=== PATIENT | male | born 1930 | race Caucasian/White ===

== ENCOUNTER 2019-05-14 10:03 | Emergency (ER) | payer MEDICARE ==
[2019-05-14 10:50] LABS: #Basophils 0.1 thou/uL (0.0-0.2); #Eosinphils 0.5 thou/uL (0.0-0.7); #Lymphocytes 1.3 thou/uL (1.20-3.40); #Monocytes 0.8 thou/uL (0.11-0.59); #Neutrophils 4.3 thou/uL (1.40-6.50); %Basophils 0.8 % (0.0-1.0); %Eosinophils 7.7 % (0.0-10.0); %Lymphocytes 18.3 % (21.0-51.0); %Monocytes 11.8 % (0.0-10.0); %Neutrophils 61.4 % (42.0-75.0); Hemoglobin 12.6 g/dL (14.0-18.0); Mean Corpuscular HGB CONC 33.1 g/dL (32.0-36.0); Mean Corpuscular Hemoglobin 31.1 pg (27.0-31.0); Mean Corpuscular Volume 94.1 fL (78.0-98.0); Mean Platelet Volume 7.1 fL (7.4-10.4); Platelet Count 177 thou/uL (130-400); RBC Distribution Width 12.8 % (11.5-14.5); Red Blood Cell (RBC) Count 4.03 mill/uL (4.70-6.10); White Blood Cell (WBC) Count 6.9 thou/uL (4.8-10.8)
[2019-05-14] MEDS ORDERED: Ondansetron PF 4 MG/2 ML Vial ONE (10:51)
[2019-05-14 11:11] LABS: ALT (SGPT) 11 U/L (8-55); AST (SGOT) 13 U/L (5-34); Albumin 3.2 g/dL (3.4-4.8); Alkaline Phosphatase 130 U/L (40-110); Anion Gap 13 mmol/L (10-20); BUN (Urea Nitrogen) 17 mg/dL (8.4-25.7); Bilirubin, Total 0.9 mg/dL (0.2-1.2); Calc. Creatinine Clearance 0 mL/min (70-130); Calcium 8.6 mg/dL (7.8-10.44); Carbon Dioxide 23 mmol/L (23-31); Chloride 110 mmol/L (98-107); Estimated GFR-MDRD 40; Globulin 2.8 g/dL (2.4-3.5); Glucose 91 mg/dL (83-110); Sodium 142 mmol/L (136-145)
--- NOTE | 2019-05-14 12:07 | CT ---
CT Abdomen Pelvis W Con History: Abdominal pain Comparison: None. Findings: Lung bases are clear. No pericardial effusion. Very large left-sided renal cysts with a septated cyst measuring up to 15 cm in size. Nonobstructive 3 x 7 mm calculus superior right renal collecting system. Punctate 2 to 3 mm calculi i nterpolar left renal collecting system. There is a sigmoid colon fat-containing left-sided indirect inguinal hernia without evidence of obstr uction. Small fat-containing periumbilical hernia. Prior cholecystectomy. There is a diverticulum third portion duodenum. Aortoiliac contour is nonaneurysmal. No acute osseous abnormality. Aortic contour is nonaneurysmal. Impression: 1. Fat and sigmoid colon left indirect inguinal hernia without evidence of obstruction. 2. Large left renal cyst as described. 3. Nonobstructive bilateral renal calculi. 4. 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 5. Small fat-containing periumbilical hernia.
[2019-05-14 13:19] LABS: Bacteria/HPF None Seen HPF (None Seen); Bilirubin Negative (Negative); Blood, Urine Negative (Negative); Clarity Clear (Clear); Glucose, Urine (Dipstick) Normal (Negative); Leukocyte Negative Leu/uL (Negative); Nitrite Negative (Negative); Protein, Urine (Dipstick) Negative (Neg-Trace); RBC/HPF None Seen HPF (0-3); Squamous Epithelial None Seen HPF (0-3); WBC/HPF 0-3 HPF (0-3)
[2019-05-14] MEDS ORDERED: Iopamidol 370 76% 100 ML VIAL ONE (20:16)
== END 2019-05-14 14:55 ==
LOC: ERS 10:03
DX: R00.1 Bradycardia, unspecified (principal); R11.2 Nausea with vomiting, unspecified
CPT/HCPCS: 36415; 74177; 80053; 81001; 85025; 93005; 96361; 96374; J2405; Q9967

== ENCOUNTER 2019-05-14 16:11 | Emergency (ER) | payer MEDICARE ==
--- NOTE | 2019-05-14 18:21 | RAD ---
THORACIC SPINE THREE VIEWS: HISTORY: Fall with back pain. FINDINGS: The vertebral bodies are normal in height. Degenerative changes are seen along the course of the spin e. I do not see any signs of compression fracture. The pedicles are intact. IMPRESSION: Arthritic changes of the spine. No acute injury. POS: [facility]IA [facility]
--- NOTE | 2019-05-14 18:22 | RAD ---
LUMBAR SPINE SERIES: HISTORY: Fall with back pain. FINDINGS: Vertebral bodies are normal in height. Degenerative osteophytes are seen without significant disk gal rowing. Degenerative facet changes are noted. Pedicles are intact. Contrast from a previous CT is not ed in the kidneys and bladder. IMPRESSION: No acute findings. POS: CHRISS
--- NOTE | 2019-05-14 18:24 | RAD ---
CERVICAL SPINE SERIES THREE VIEWS: HISTORY: Fall with neck pain. FINDINGS: There are severe arthritic changes of the facet joints noted. On the lateral view which is a cross-ta ble view only the first five vertebral bodies are seen. C6 and C7 are in grossly normal alignment. Ca rotid bulb calcifications are noted. No soft tissue swelling. IMPRESSION: Limited examination. Moderate arthritic changes of the facet joints are noted. C6 and C7 are not visu alized on this study. If indicated CT is recommended. POS: MARIA [facility]
--- NOTE | 2019-05-14 18:41 | CT ---
CT BRAIN WITHOUT CONTRAST: HISTORY: Fall, hitting head. TECHNIQUE: IV contrast was administered approximately six hours ago for a CT study. FINDINGS: There is generalized ventricular and sulcal prominence with decreased attenuation of the periventricu lar white matter, consistent with some chronic white matter change. There are no signs of intracerebr al hemorrhage or extraaxial fluid collections. The mastoid air cells are clear. There is minimal maxi llary sinus mucosal change. IMPRESSION: No acute intracranial abnormalities. POS: MARIA R
== END 2019-05-14 20:40 ==
LOC: ERS 16:11
DX: S00.03XA Contusion of scalp, initial encounter (principal); K21.9 Gastro-esophageal reflux disease without esophagitis; F41.9 Anxiety disorder, unspecified; G30.9 Alzheimer's disease, unspecified; F02.80 Dementia in other diseases classified elsewhere, unspecified severity, without behavioral disturbance, psychotic disturbance, mood disturbance, and anxiety; E78.5 Hyperlipidemia, unspecified; E78.00 Pure hypercholesterolemia, unspecified; I10 Essential (primary) hypertension; F32.9 Major depressive disorder, single episode, unspecified; Z79.899 Other long term (current) drug therapy; Z79.01 Long term (current) use of anticoagulants; W18.30XA Fall on same level, unspecified, initial encounter
CPT/HCPCS: 70450; 72040; 72072; 72100

== ENCOUNTER 2019-07-19 06:44 | Inpatient (IN) | payer MEDICARE ==
[2019-07-19 07:41] LABS: #Basophils 0.1 thou/uL (0.0-0.2); #Eosinphils 0.4 thou/uL (0.0-0.7); #Lymphocytes 1.2 thou/uL (1.20-3.40); #Monocytes 0.9 thou/uL (0.11-0.59); #Neutrophils 11.4 thou/uL (1.40-6.50); %Basophils 0.5 % (0.0-1.0); %Lymphocytes 8.5 % (21.0-51.0); %Monocytes 6.1 % (0.0-10.0); %Neutrophils 81.8 % (42.0-75.0); Hemoglobin 13.7 g/dL (14.0-18.0); Mean Corpuscular HGB CONC 34.5 g/dL (32.0-36.0); Mean Corpuscular Hemoglobin 32.9 pg (27.0-31.0); Mean Corpuscular Volume 95.2 fL (78.0-98.0); Mean Platelet Volume 6.4 fL (7.4-10.4); Platelet Count 202 thou/uL (130-400); RBC Distribution Width 12.6 % (11.5-14.5); Red Blood Cell (RBC) Count 4.18 mill/uL (4.70-6.10); White Blood Cell (WBC) Count 13.9 thou/uL (4.8-10.8)
[2019-07-19 07:51] LABS: PTT 28.5 SEC (22.9-36.1); Prothrombin Time 13.2 SEC (12.0-14.7)
[2019-07-19 07:55] LABS: ALT (SGPT) 9 U/L (8-55); AST (SGOT) 13 U/L (5-34); Albumin 3.6 g/dL (3.4-4.8); Alkaline Phosphatase 154 U/L (40-110); Anion Gap 12 mmol/L (10-20); BUN (Urea Nitrogen) 16 mg/dL (8.4-25.7); Bilirubin, Total 0.6 mg/dL (0.2-1.2); CK (CPK) 48 U/L (30-200); Calc. Creatinine Clearance 0 mL/min (70-130); Calcium 8.9 mg/dL (7.8-10.44); Carbon Dioxide 29 mmol/L (23-31); Chloride 105 mmol/L (98-107); Estimated GFR-MDRD 52; Globulin 3.2 g/dL (2.4-3.5); Glucose 116 mg/dL (83-110); Potassium 3.9 mmol/L (3.5-5.1); Protein, Total 6.8 g/dL (5.8-8.1); Sodium 142 mmol/L (136-145)
--- NOTE | 2019-07-19 07:56 | CT ---
Exam: Head CT without contrast HISTORY: Fall. Trauma. Pain. COMPARISON: 05/14/2019 FINDINGS: Hemorrhage: No intraparenchymal hemorrhage or extra-axial hematoma. Brain parenchyma: Cortical miller-white matter differentiation is preserved. No mass effect or midline shift. Basilar cisterns are patent.Stable confluent white matter hypodensities due to chronic small vessel ischemic change. Stable lacunar infarct in the left lentiform nucleus. Stable atrophy of the l eft occipital lobe. Stable Wallerian degeneration. Ventricular system: Ventricles and sulci are patent and symmetric. Calvarium: Intact. Sinuses and mastoid air cells: Adequate aeration. IMPRESSION: No intracranial post traumatic sequelae
--- NOTE | 2019-07-19 07:58 | CT ---
CT cervical spine noncontrast HISTORY: Fall. Neck injury. FINDINGS: Vertebral body heights and alignment are maintained. No acute fracture or dislocation. Cerv icothoracic junction is intact. Multilevel osteophytosis and disc space narrowing. Intramuscular lipoma within the right sternocleidomastoid. Prominent calcification at the carotid bifurcations. IMPRESSION: No acute osseous abnormalities are demonstrated. Atherosclerosis.
--- NOTE | 2019-07-19 08:11 | RAD ---
XR Chest 1 View Portable HISTORY: Fall hip pain FINDINGS: The heart size is normal. The lungs are hypoexpanded without focal areas of consolidation, pneumothorax or pleural effusions. IMPRESSION: No radiographic evidence of acute cardiopulmonary process.
[2019-07-19] MEDS ORDERED: Morphine 4 MG/ML VIAL ONE ×2 (08:30→11:53)
--- NOTE | 2019-07-19 08:44 | RAD ---
LEFT HIP TWO VIEWS: HISTORY: Fall. COMPARISON: None. FINDINGS: Intertrochanteric fracture, left femur with lateral displacement 2 cm. There is proximal migration of the lesser trochanter. IMPRESSION: Intertrochanteric fracture left femur with a 2 cm of displacement as well as proximal migration of th e lesser trochanter 2.5 cm. POS: CET
--- NOTE | 2019-07-19 08:45 | RAD ---
LEFT FEMUR TWO VIEWS: HISTORY: Fall. COMPARISON: None. FINDINGS: Intertrochanteric fracture left femur as previously described on recent pelvis radiograph. The mid an d distal femur are intact. IMPRESSION: Intertrochanteric fracture. POS: CET
--- NOTE | 2019-07-19 08:47 | RAD ---
PELVIS ONE VIEW: HISTORY: Fall. COMPARISON: None. FINDINGS: Intertrochanteric fracture left femur is obscured by a hand overlying the fracture. Obturator rings a ppear to be intact. There appear to be subtle lytic foci within the pubic rami although this was not seen on a recent CT examination and may reflect aggressive demineralization versus less likely a myel omatous process. IMPRESSION: 1. Obscured left intertrochanteric fracture of the femur due to overlying hand. 2. Subtle lytic foci of both pubic rami. This may reflect aggressive demineralization versus myelomat ous process. Myelomatous workup recommended. POS: CET
[2019-07-19] MEDS ORDERED: Ondansetron PF 4 MG/2 ML Vial IVP PRN (09:54)
[2019-07-19] MEDS ORDERED: hydrALAZINE 20 MG/ML VIAL SLOW IVP PRN (09:54)
[2019-07-19] MEDS ORDERED: Dextrose 5% in Water 1,000 ML IV PRN (09:54)
[2019-07-19] MEDS ORDERED: Dextrose 50% Abboject 50 ML SYRINGE SLOW IVP PRN (09:54)
[2019-07-19] MEDS ORDERED: Rocuronium Bromide 10 MG/ML (10ML VIAL) ONE (10:31)
[2019-07-19] MEDS ORDERED: PHENYLEPHRINE-NS 100 MCG/ML 10 ML SYRINGE ONE (10:31)
[2019-07-19] MEDS ORDERED: Glycopyrrolate 0.2 MG/ML 5 ML SYRINGE ONE (10:31)
[2019-07-19] MEDS ORDERED: traMADol HCl 50 MG TAB PO PRN (12:04)
[2019-07-19] MEDS ORDERED: Midazolam HCl 2 mg/2 ml Vial ONE (12:17)
[2019-07-19] MEDS ORDERED: Ketamine 50 MG/ML (10ML VIAL) ONE (12:55)
--- NOTE | 2019-07-19 13:14 | HP ---
TRAUMA SURGEON: Dr. Miguel. CONSULTING PHYSICIAN: Dr. Aguilar HISTORY OF PRESENT ILLNESS: The patient is an 88-year-old male who presents to the emergency department via EMS after he was found down at his [facility]pc. He was found to have a hip fracture. The patient has Alzheimer's. He is alert and oriented x1, which is baseline. He also is deaf-mute, but can read lips and follow commands. He does take Plavix, but no other blood thinners. Daughter is at bedside. Reports that he is acting normally. He has no complaints at the time of my evaluation. REVIEW OF SYSTEMS: All additional 10-point review of systems negative except as indicated above. PAST MEDICAL HISTORY: Alzheimer's, coronary artery disease, diabetes, hypertension, CVA, anxiety, BPH, depression, dementia, hyperlipidemia, blindness, GERD, and malaise. PAST SURGICAL HISTORY: Daughter reports cholecystitis and hernia repairs, but cannot fully remember the history. SOCIAL HISTORY: The patient lives in a fpc. He uses a wheelchair to get around. He can transfer from the bed to the wheelchair. MEDICATIONS: 1. Tylenol. 2. Amlodipine. 3. Atorvastatin. 4. Clonidine. 5. Plavix. 6. Escitalopram. 7. Irbesartan. 8. Metoprolol. 9. NovoLog. 10. Pantoprazole. 11. Seroquel. 12. Flomax. 13. Triamcinolone cream. 14. Zofran. ALLERGIES: AMBIEN. PHYSICAL EXAMINATION: VITAL SIGNS: The patient is afebrile and hemodynamically stable, saturating greater than 92% on room air. PRIMARY SURVEY: Airway intact. Adequate breath sounds bilaterally. 2+ pulses in bilateral radials, femorals, and DPs. GCS is at baseline, which is typically about 14. No lacerations, bruising, or external bleeding. SECONDARY SURVEY: HEAD: Normocephalic and atraumatic. No gross palpable skull deformities or tenderness. Pupils 3 to 2, equal, round, and reactive bilaterally. ENT: No hemotympanum. No epistaxis. No septal hematoma. Midface stable to manipulation. No blood in the oropharynx. Dentition is intact. No anterior neck injury/crepitus/tenderness. C-SPINE: No step-offs or deformities. Nontender. C-collar in place. CHEST: Nontender. No crepitus. No abrasions or ecchymosis. Equal chest movement. 2/6 systolic murmur. ABDOMEN: Soft, nontender, and nondistended. PELVIS: Stable with some left-sided tenderness. EXTREMITIES: 2+ pulses in all extremities. Gross motor and sensation are intact. Left lower extremity is shortened and externally rotated. BACK/SPINE: No step-offs, deformities, or tenderness to palpation of the thoracic or lumbar spine. No abrasions or ecchymosis noted. NEUROLOGIC: 5/5 strength in bilateral director business development, plantar flexion, and dorsiflexion. Gross normal sensation x4 extremities. LABORATORY FINDINGS: White count 13.9, hemoglobin 13.7, hematocrit 39.8, platelets 202. INR 1.0. Sodium 142, potassium 3.9, chloride 105, bicarb 29, BUN 16, creatinine 1.30, glucose 116, lactic acid 1.9. Total bilirubin 0.6, AST 13, ALT 9, and troponin 0.017. DIAGNOSTIC FINDINGS: CT of the brain demonstrates no intracranial posttraumatic sequela. CT of the C-spine demonstrates no acute osseous abnormalities are demonstrated. Chest x-ray demonstrates no radiographic evidence of acute cardiopulmonary process. X-ray of the pelvis demonstrates obscured left intertrochanteric fracture of the femur due to overlying subtle lytic foci in both pubic rami. This may suggest demineralization versus myelomatous process. Myelomatous workup recommended intertrochanteric fracture of the left femur with a 2 cm displacement as well as proximal margins of the lesser trochanter 2.5 cm. ASSESSMENT: 1. Status post found down. 2. Left intertrochanteric femur fracture. 3. History of coronary artery disease, Alzheimer's dementia, diabetes, hypertension, cerebrovascular accident, BPH, depression, anxiety, hyperlipidemia, blind, and gastroesophageal reflux disease. PLAN: The patient will be admitted to the Trauma Service. He is n.p.o. and will go to the OR today with Orthopedic Surgery. Dr. Aguilar has been contacted. Postoperatively, he worked with Physical and Occupational Therapy. We will hold his home Plavix. He will also be placed on a sliding scale. He will receive both p.r.n. and scheduled pain medications. The patient will be seen by PT/OT postoperatively and likely need placement in a senior care facility. The services may be available at the facility he currently resides. We will ask Case Management to evaluate the patient. This patient was seen and examined by Dr. Miguel and myself this morning during rounds. Job ID: [id number] MTDD
[2019-07-19] MEDS ORDERED: Ondansetron HCl/PF 4 MG/2 ML Vial IVP PRN (14:50)
[2019-07-19] MEDS ORDERED: Promethazine HCl 25 MG/ML VIAL SLOW IVP PRN (14:50)
[2019-07-19] MEDS ORDERED: Promethazine HCl 25 MG/ML VIAL IM PRN (14:50)
--- NOTE | 2019-07-19 16:04 | RAD ---
LEFT HIP: 07/19/19 Three fluoroscopic images presented from OR. INDICATIONS: Open reduction internal fixation left hip with intraoperative imaging. These films demonstrate placement of a compression screw transfixing the intertrochanteric fracture. POS: [facility]
[2019-07-19] MEDS: Ibuprofen 600 MG TAB PO SCH (16:49)
--- NOTE | 2019-07-19 17:10 | OP ---
DATE OF PROCEDURE: 07/19/2019 PREOPERATIVE DIAGNOSIS: Left intertrochanteric femur fracture. POSTOPERATIVE DIAGNOSIS: Left intertrochanteric femur fracture. PROCEDURE PERFORMED: Open reduction and internal fixation of left intertrochanteric femur fracture. ANESTHESIA: General. SCIENTIFIC TECHNICAL WRITER: Raffi Henry PA-C. ESTIMATED BLOOD LOSS: 200 mL. IMPLANT: Synthes DHS 135 degree 3-hole sideplate with hip screw. COMPLICATIONS: None. DRAINS: None. SPECIMEN: None. OUTCOME: Near-anatomic alignment. INDICATIONS FOR PROCEDURE: The patient is an 88-year-old gentleman, who was essentially wheelchair bound and was transferring today when he fell sustaining a left intertrochanteric femur fracture. After discussion with the patient and his daughter including risks and benefits, we decided to proceed with open reduction and internal fixation of this fracture. Informed consent has been obtained. I believe all questions have been answered. Risks and benefits have been discussed. Risks include, but are not limited to, bleeding, infection, nerve injury, DVT, PE, loss of limb or life. DESCRIPTION OF PROCEDURE: The patient was brought to the operating room and a time-out performed followed by induction of general anesthesia. Next, patient was positioned supine on the fracture table with the injured extremity held in longitudinal traction and slight internal rotation and the well leg scissored to allow for AP and lateral imaging of the left hip. Next, a sterile prep and drape was performed of the left lateral thigh. A lateral skin incision was made just distal to the greater trochanter. After skin was sharply incised, dissection was carried down bluntly to the underlying fascia gabriel. This was incised in line with skin incision reflected anteriorly and posteriorly reflecting the underlying fascia of vastus lateralis. This fascia was also incised in line with skin incision and then the muscle belly was swept off the posterior leaflet of the fascia and reflected anteriorly with radiolucent Mace. Next a jig for 135 degree pin placement was inserted into the wound and a threaded guidewire was passed from the lateral cortex of the femur up the femoral neck into the femoral head. Once appropriately positioned, measurement was taken of this guidewire and it was found to have a length of 110 mm. The step drill was then passed over the guidewire drilling to a depth of 110 mm. Next, the sliding hip screw and sideplate was inserted into the wound and the hip screw delivered fully up into the head and then the plate affixed to the lateral cortex of the femur with 4.5 mm cannulated screws. At the completion of this, final AP and lateral C-arm images were obtained that showed near-anatomic alignment of the fracture and appropriate positioning of the hardware. The wound was then irrigated with bulb syringe and closed in layers with 0 Vicryl for the fascia, 2-0 Vicryl subcutaneously and narayan for the skin. Xeroform gauze and tape dressing was applied to the lateral thigh and the patient was transferred to recovery room in stable condition. There were no complications. The patient tolerated the procedure well. Job ID: [id number]
[2019-07-19 17:49] VITALS: BMI 29.8
[2019-07-19] MEDS: Acetaminophen 500 MG TAB PO SCH (17:56)
[2019-07-19] MEDS: Insulin Regular 300 UNITS/3 ML VIAL SC PRN ×2 (18:10→21:01)
[2019-07-19] MEDS: CEFAZOLIN 2 GM in Premix Bag 1 BAG IVPB SCH (20:44)
[2019-07-19] MEDS: Famotidine/PF 20 mg/2ml Vial SLOW IVP SCH (20:44)
[2019-07-19] MEDS: Senokot S 8.6-50 MG TAB PO SCH (20:59)
[2019-07-19] MEDS: Morphine 2 MG/ML SYRINGE SLOW IVP PRN (21:03)
[2019-07-20] MEDS: Morphine 2 MG/ML SYRINGE SLOW IVP PRN (00:02)
[2019-07-20] MEDS: Ibuprofen 600 MG TAB PO SCH ×3 (00:03→13:25)
[2019-07-20] MEDS: Acetaminophen 500 MG TAB PO SCH ×4 (00:03→17:38)
[2019-07-20] MEDS ORDERED: Promethazine HCl 25 MG/ML VIAL IM/IV PRN (02:03)
[2019-07-20] MEDS ORDERED: Acetaminophen 650 MG Suppository PR SCH (02:15)
[2019-07-20] MEDS: Ketorolac Tromethamine 30 MG/ML VIAL IVP PRN ×2 (02:15→09:16)
[2019-07-20] MEDS: CEFAZOLIN 2 GM in Premix Bag 1 BAG IVPB SCH ×2 (04:32→13:26)
[2019-07-20] MEDS: Insulin Regular 300 UNITS/3 ML VIAL SC PRN (06:11)
[2019-07-20] MEDS ORDERED: Sodium Chloride 0.9% 500 ML IV SCH ×2 (07:00→15:30)
[2019-07-20 08:33] LABS: #Lymphocytes 0.8 thou/uL (1.20-3.40); #Monocytes 1.3 thou/uL (0.11-0.59); #Neutrophils 10.5 thou/uL (1.40-6.50); %Basophils 0.3 % (0.0-1.0); %Eosinophils 0.3 % (0.0-10.0); %Lymphocytes 6.1 % (21.0-51.0); %Monocytes 10.4 % (0.0-10.0); %Neutrophils 82.9 % (42.0-75.0); Hemoglobin 10.5 g/dL (14.0-18.0); Mean Corpuscular HGB CONC 32.9 g/dL (32.0-36.0); Mean Corpuscular Volume 97.2 fL (78.0-98.0); Mean Platelet Volume 6.8 fL (7.4-10.4); Platelet Count 228 thou/uL (130-400); RBC Distribution Width 12.8 % (11.5-14.5); White Blood Cell (WBC) Count 12.6 thou/uL (4.8-10.8)
[2019-07-20] MEDS: Sodium Chloride 0.9% 1,000 ML IV SCH (08:55)
[2019-07-20] MEDS: Polyethylene Glycol 3350 17 GM Packet PO SCH (09:14)
[2019-07-20] MEDS: cloNIDine 0.2 MG TAB PO SCH ×4 (09:15→20:44)
[2019-07-20] MEDS: Amlodipine 5 MG TAB PO SCH (09:15)
[2019-07-20] MEDS: Metoprolol Tartrate 50 MG TAB PO SCH ×2 (09:15→20:44)
[2019-07-20] MEDS: Tamsulosin HCl 0.4 MG CAP PO SCH (09:15)
[2019-07-20] MEDS: Atorvastatin Calcium 40 MG TAB PO SCH (09:15)
[2019-07-20] MEDS: Escitalopram Oxalate 10 mg Tablet PO SCH (09:15)
[2019-07-20] MEDS: Senokot S 8.6-50 MG TAB PO SCH ×2 (09:15→20:46)
[2019-07-20] MEDS: Famotidine/PF 20 mg/2ml Vial SLOW IVP SCH ×2 (09:16→20:44)
[2019-07-20 09:25] LABS: Anion Gap 14 mmol/L (10-20); BUN (Urea Nitrogen) 32 mg/dL (8.4-25.7); Calc. Creatinine Clearance 22 mL/min (70-130); Calcium 8.2 mg/dL (7.8-10.44); Carbon Dioxide 27 mmol/L (23-31); Chloride 104 mmol/L (98-107); Estimated GFR-MDRD 21; Glucose 225 mg/dL (83-110); Potassium 4.8 mmol/L (3.5-5.1); Sodium 140 mmol/L (136-145)
[2019-07-20] MEDS: Triamcinolone 0.1% Cream 15 GM TUBE TOP SCH (09:33)
[2019-07-20] MEDS: traMADol HCl 50 MG TAB PO PRN ×2 (10:54→21:49)
--- NOTE | 2019-07-20 16:11 | PRG ---
DATE OF SERVICE: 07/20/2019 SUBJECTIVE: Mr. Beard is an 88-year-old male with history of Alzheimer's, A and O x1 at his baseline, with left intertrochanteric hip fracture. The patient has undergone ORIF of the left hip, returned to his surgery schaffer room in stable condition. He is on room air, hemodynamically stable. He did have some urinary retention, is unable to void. He is hard of hearing. We tried to write this on a board, still would not, therefore, BladderScan and I and O over 700 mL. If retention again, may need a Cabral catheter. Plan is to go back to nursing facility. No subjective complaints. Discussed with family at bedside. OBJECTIVE: Today, VITAL SIGNS: Temperature is 98.5, blood pressure is 147/75, and heart rate is 92. He is 97% on room air. GENERAL: This is an 88-year-old male, slightly confused, sitting up in no acute distress. HEENT: Normocephalic and atraumatic. RESPIRATORY: Equal rise and fall. Bilateral breath sounds clear CARDIOVASCULAR: Regular rate and rhythm. He has strong pulses. ABDOMEN: Soft and nontender. PELVIS: Left hip fracture repaired. Dressings dry. MUSCULOSKELETAL: Moves extremities. No laly edema. Pulses are noted and warm extremities. PSYCHIATRIC: Normal for the patient. NEUROLOGIC: A and O x1, follows some simple commands and at his neuro baseline. LABORATORY DATA: From today, White blood cell count is 12.6, platelets are 228, and hemoglobin and hematocrit are 10.5 and 32.0 respectively. Chemistry; sodium is 140, potassium is 4.8, chloride is 104, CO2 is 27, BUN is 32, creatinine is 2.82, glucose is 225, and calcium is 8.2. ASSESSMENT AND PLAN: 1. Fall. 2. Left intertrochanteric hip fracture, status post open reduction and internal fixation. 3. Acute kidney injury. 4. History of coronary artery disease, Alzheimer's, dementia, diabetes, hypertension, cerebrovascular accident, benign prostatic hyperplasia, depression , anxiety, hyperlipidemia, blindness, and gastroesophageal reflux disease. PLAN: 1. Continue all supportive care. 2. Rehab screen is in place. 3. We will start Flomax if he is not already on this. 4. Normal saline bolusing. Encouraged p.o. intake for his GEORGES. 5. Repeat labs in the morning. 6. Anticipate discharge back to the rehab facility. The patient is currently only in a wheelchair. Does not ambulate at this present time per the family. The patient was discussed with Dr. Miguel, can be updated as needed. 7. I have updated the patient and answered all questions at bedside. 8. Urine scan again in 6 hours, GEORGES could be obstructive in nature vs dehydration. 9. Suspend all NSAID's. Job ID: [id number] [facility]
[2019-07-20] MEDS: HumaLOG 300 UNITS/3 ML VIAL SC PRN ×2 (16:44→21:42)
[2019-07-20] MEDS: Losartan 25 MG TAB PO SCH (20:45)
[2019-07-21] MEDS: Acetaminophen 500 MG TAB PO SCH ×5 (00:17→23:57)
[2019-07-21] MEDS: Sodium Chloride 0.9% 1,000 ML IV SCH ×3 (05:01→17:27)
[2019-07-21] MEDS: HumaLOG 300 UNITS/3 ML VIAL SC PRN ×4 (05:10→21:53)
[2019-07-21 05:37] LABS: Anion Gap 11 mmol/L (10-20); BUN (Urea Nitrogen) 42 mg/dL (8.4-25.7); Calc. Creatinine Clearance 26 mL/min (70-130); Calcium 7.9 mg/dL (7.8-10.44); Carbon Dioxide 24 mmol/L (23-31); Chloride 108 mmol/L (98-107); Estimated GFR-MDRD 26; Glucose 233 mg/dL (83-110); Magnesium 1.5 mg/dL (1.6-2.6); Phosphorus 3.3 mg/dL (2.3-4.7); Potassium 5.1 mmol/L (3.5-5.1); Sodium 138 mmol/L (136-145)
[2019-07-21 05:49] LABS: Band 38 % (5-11); Eosinophils 1 % (0-10); Hemoglobin 9.2 g/dL (14.0-18.0); Lymphocytes 11 % (21-51); MDiff Complete? YES; Mean Corpuscular HGB CONC 32.6 g/dL (32.0-36.0); Mean Corpuscular Hemoglobin 31.5 pg (27.0-31.0); Mean Corpuscular Volume 96.6 fL (78.0-98.0); Mean Platelet Volume 7.5 fL (7.4-10.4); Metamyelocyte 1 % (0-0); Monocytes 6 % (0-10); Neutrophil 43 % (42-75); Platelet Count 188 thou/uL (130-400); Platelet Morphology Comment Appears Adequate; RBC Distribution Width 12.9 % (11.5-14.5); Red Blood Cell (RBC) Count 2.94 mill/uL (4.70-6.10); White Blood Cell (WBC) Count 13.9 thou/uL (4.8-10.8)
--- NOTE | 2019-07-21 07:50 | PRG ---
DATE OF SERVICE: 07/20/2019 Seen at approximately 2200 hours. SUBJECTIVE: 88-year-old male, who is actually sleeping on my exam, did not wake him. Discussed case with the bedside RN. The patient has no acute distress, sleeping. Did notice that he had slight fever at 100.7 around 1500 hours today He has not been participating and is difficult given that he is very hard of hearing, nearly deaf. I have placed an order for RT to work with him every 4 hours with IS. He has also had urinary retention today. Bladder scan most recently had 226 mL. Discussed with RN. She is going to rescan him later if it is over 300 mL, will do an in-and-out catheter. We encouraged him to urinate. There are no further changes. Pain appears to be controlled. No family to update this evening. We will continue all other care. I have confirmed that he is on Flomax and re-evaluate in the morning. Job ID: [id number]
[2019-07-21] MEDS ORDERED: Sodium Chloride 0.9% 500 ML IV SCH (08:15)
[2019-07-21] MEDS: Amlodipine 5 MG TAB PO SCH (09:26)
[2019-07-21] MEDS: Triamcinolone 0.1% Cream 15 GM TUBE TOP SCH (09:28)
[2019-07-21] MEDS: Tamsulosin HCl 0.4 MG CAP PO SCH (09:28)
[2019-07-21] MEDS: Polyethylene Glycol 3350 17 GM Packet PO SCH (09:28)
[2019-07-21] MEDS: Heparin 5,000 UNITS/ML VIAL SC SCH ×2 (09:28→21:49)
[2019-07-21] MEDS: Escitalopram Oxalate 10 mg Tablet PO SCH (09:28)
[2019-07-21] MEDS: Senokot S 8.6-50 MG TAB PO SCH ×2 (09:28→21:49)
[2019-07-21] MEDS: Atorvastatin Calcium 40 MG TAB PO SCH (09:29)
[2019-07-21] MEDS: cloNIDine 0.2 MG TAB PO SCH ×4 (09:30→21:50)
[2019-07-21] MEDS: Metoprolol Tartrate 50 MG TAB PO SCH ×2 (09:30→21:52)
[2019-07-21] MEDS: Famotidine/PF 20 mg/2ml Vial SLOW IVP SCH (21:49)
[2019-07-21] MEDS: Losartan 25 MG TAB PO SCH (21:52)
[2019-07-22] MEDS: Sodium Chloride 0.9% 1,000 ML IV SCH ×2 (00:30→09:06)
[2019-07-22] MEDS: Acetaminophen 500 MG TAB PO SCH ×3 (06:21→18:45)
[2019-07-22 06:23] LABS: Anion Gap 11 mmol/L (10-20); BUN (Urea Nitrogen) 43 mg/dL (8.4-25.7); Calc. Creatinine Clearance 35 mL/min (70-130); Carbon Dioxide 24 mmol/L (23-31); Chloride 112 mmol/L (98-107); Estimated GFR-MDRD 36; Glucose 145 mg/dL (83-110); Magnesium 1.7 mg/dL (1.6-2.6); Phosphorus 2.3 mg/dL (2.3-4.7); Potassium 4.7 mmol/L (3.5-5.1); Sodium 142 mmol/L (136-145)
[2019-07-22] MEDS: HumaLOG 300 UNITS/3 ML VIAL SC PRN ×3 (06:24→21:42)
[2019-07-22] MEDS ORDERED: Sodium Chloride 0.9% 500 ML IV SCH (08:45)
[2019-07-22] MEDS: Polyethylene Glycol 3350 17 GM Packet PO SCH (09:10)
[2019-07-22] MEDS: Senokot S 8.6-50 MG TAB PO SCH ×2 (09:10→21:26)
[2019-07-22] MEDS: Pantoprazole 40 MG GRANULES PACKET PO SCH (09:11)
[2019-07-22] MEDS: Atorvastatin Calcium 40 MG TAB PO SCH (09:11)
[2019-07-22] MEDS: Tamsulosin HCl 0.4 MG CAP PO SCH (09:11)
[2019-07-22] MEDS: Metoprolol Tartrate 50 MG TAB PO SCH ×2 (09:11→21:27)
[2019-07-22] MEDS: Amlodipine 5 MG TAB PO SCH (09:11)
[2019-07-22] MEDS: Triamcinolone 0.1% Cream 15 GM TUBE TOP SCH (09:11)
[2019-07-22] MEDS: Heparin 5,000 UNITS/ML VIAL SC SCH ×2 (09:14→21:28)
[2019-07-22] MEDS: cloNIDine 0.2 MG TAB PO SCH ×2 (10:30→21:28)
--- NOTE | 2019-07-22 12:34 | PRG ---
DATE OF SERVICE: 07/22/2019 SUBJECTIVE: Mr. Beard is an 88-year-old male with history of Alzheimer, status post ground level fall with left hip fracture. The patient underwent ORIF of left hip fracture. Yesterday, the patient had been pretty sedation, difficult to be aroused. However, he is able to take some shake and yogurt with no jerking incident. The patient is unable to void, in which he was started with Cabral catheter last night. He developed no fever or shortness of breath. His vital signs have been stable. OBJECTIVE: GENERAL: The patient is lying down in bed, still sleeping, arouses with voice command. VITAL SIGNS: Stable. LUNGS: Clear bilaterally. Breathing nonlabored. CARDIAC: Regular rate and rhythm. ABDOMEN: Soft and nondistended. EXTREMITIES: Neurovascularly intact x4. Postop dressing clean, dry, and intact. NEUROLOGY: No focal neurology deficits. Mental status is on his baseline. ASSESSMENT: 1. Status post ground level fall. 2. Left hip fracture status post open reduction and internal fixation of left hip fracture. 3. Acute kidney injury, improved. 4. History of coronary artery disease. 5. Alzheimer. 6. Dementia. 7. Diabetes. 8. Hypertension. 9. CVA. 10. BPH. 11. Retention. PLAN: Continue supportive care. Continue pain control. We will adjust psych medication and sedation medication today to decrease the sedation side effect in the morning. Continue Cabral catheter. Increase intake by mouth. Encourage working with PT/OT. Anticipate placement in fpc facility or rehabilitation facility. Job ID: [id number]
[2019-07-22] MEDS: Famotidine/PF 20 mg/2ml Vial SLOW IVP SCH (21:26)
[2019-07-22] MEDS: Escitalopram Oxalate 10 mg Tablet PO SCH (21:27)
[2019-07-22] MEDS: Losartan 25 MG TAB PO SCH (21:27)
[2019-07-23] MEDS: Acetaminophen 500 MG TAB PO SCH ×5 (00:22→23:06)
[2019-07-23 04:32] LABS: #Eosinphils 0.5 thou/uL (0.0-0.7); #Lymphocytes 0.8 thou/uL (1.20-3.40); #Monocytes 1.3 thou/uL (0.11-0.59); #Neutrophils 7.4 thou/uL (1.40-6.50); %Basophils 0.5 % (0.0-1.0); %Eosinophils 4.9 % (0.0-10.0); %Lymphocytes 8.3 % (21.0-51.0); %Monocytes 12.6 % (0.0-10.0); %Neutrophils 73.8 % (42.0-75.0); Hemoglobin 8.7 g/dL (14.0-18.0); Mean Corpuscular HGB CONC 32.5 g/dL (32.0-36.0); Mean Corpuscular Hemoglobin 31.9 pg (27.0-31.0); Mean Corpuscular Volume 98.4 fL (78.0-98.0); Mean Platelet Volume 6.9 fL (7.4-10.4); Platelet Count 182 thou/uL (130-400); Red Blood Cell (RBC) Count 2.73 mill/uL (4.70-6.10)
[2019-07-23] MEDS: Sodium Chloride 0.9% 1,000 ML IV SCH (04:54)
[2019-07-23 05:21] LABS: Anion Gap 13 mmol/L (10-20); BUN (Urea Nitrogen) 35 mg/dL (8.4-25.7); Calc. Creatinine Clearance 45 mL/min (70-130); Carbon Dioxide 18 mmol/L (23-31); Chloride 117 mmol/L (98-107); Estimated GFR-MDRD 48; Glucose 156 mg/dL (83-110); Potassium 4.4 mmol/L (3.5-5.1); Sodium 144 mmol/L (136-145)
--- NOTE | 2019-07-23 05:33 | PRG ---
DATE OF SERVICE: 07/23/2019 SUBJECTIVE: The patient remains on the surgical floor. He is status post open reduction and internal fixation of left hip fracture. The patient has been awaiting final placement decision. Last night, he did have some urinary retention issues that required a Cabral placement. Due to some prior in- and out catheterizations, the Cabral was left in place. The patient is making adequate urine. There were some reports of continuous sedation this morning, which after medication adjustment appeared to have helped with this. Nurses do not report any issues at this time. OBJECTIVE: VITAL SIGNS: Stable. GENERAL: The patient appears to be resting comfortably. RESPIRATIONS: Appear nonlabored. ASSESSMENT: 1. Status post ground level fall. 2. Status post open reduction and internal fixation of left hip fracture. 3. Acute kidney injury, improved. PLAN: Plan will be to continue supportive care. Encourage physical and occupational therapy and await final placement decision. Job ID: [id number]
[2019-07-23] MEDS: HumaLOG 300 UNITS/3 ML VIAL SC PRN ×4 (05:56→20:58)
[2019-07-23] MEDS: Heparin 5,000 UNITS/ML VIAL SC SCH ×2 (08:29→20:45)
[2019-07-23] MEDS: Metoprolol Tartrate 50 MG TAB PO SCH ×2 (08:29→20:44)
[2019-07-23] MEDS: Amlodipine 5 MG TAB PO SCH ×2 (08:30→09:29)
[2019-07-23] MEDS: Tamsulosin HCl 0.4 MG CAP PO SCH (08:30)
[2019-07-23] MEDS: cloNIDine 0.2 MG TAB PO SCH ×2 (08:30→20:45)
[2019-07-23] MEDS: Atorvastatin Calcium 40 MG TAB PO SCH (08:30)
[2019-07-23] MEDS: Pantoprazole 40 MG GRANULES PACKET PO SCH (08:31)
[2019-07-23] MEDS: Triamcinolone 0.1% Cream 15 GM TUBE TOP SCH (08:31)
[2019-07-23] MEDS: Polyethylene Glycol 3350 17 GM Packet PO SCH (08:31)
[2019-07-23] MEDS: Senokot S 8.6-50 MG TAB PO SCH ×2 (08:31→20:45)
[2019-07-23] MEDS ORDERED: PHOS-NAK 1 PKT PACK PO SCH (09:00)
[2019-07-23] MEDS ORDERED: Sodium Chloride 0.9% 1,000 ML IV SCH (12:00)
--- NOTE | 2019-07-23 17:58 | PRG ---
DATE OF SERVICE: 07/23/2019 SUBJECTIVE: Mr. Beard is an 88-year-old male, history of Alzheimer, status post ground level fall with left hip fracture. The patient underwent ORIF of left hip fracture. The patient is still going on sleepiness and sedation, difficult to be aroused. The patient refused to eat any food. The patient is currently on Cabral catheter with adequate urine output. Vital signs are stable. Currently, the patient is lying down in bed with no acute respiratory distress. OBJECTIVE: VITAL SIGNS: Temperature 98.6, heart rate 76, respiratory rate 16, O2 saturation 99% on room air, and blood pressure 110/46. GENERAL: The patient has limited interaction. Opens his eyes when called, but very limited communication due to his deaf and blind. LUNGS: Clear bilaterally. HEART: Regular rate and rhythm. ABDOMEN: Soft and nondistended. EXTREMITIES: Pulses 2+ bilaterally. NEUROLOGIC: Difficult to access due to mental status. Speech Therapy showed minimal communication, is sleepy throughout . The patient presenting with severe aphasia and cognitive deficits exacerbated by sleepiness and visual and hearing limitation. Speech therapist recommended pureed diet. ASSESSMENT: 1. Status post ground level fall. 2. Left hip fracture, postoperative status post open reduction and internal fixation of left hip fracture. 3. Acute kidney injury due to volume depletion, improved. 4. History of coronary artery disease; dementia, Alzheimer; diabetes; hypertension; CVA; BPH. PLAN: Will be continue supportive care. Continue pain control. The patient's family refused tube feeding, so that is why the patient has fluid transfusion for now. The patient is DNR. Plan will be the patient will be going back to [facility] tomorrow. Job ID: [id number]
[2019-07-23] MEDS: Losartan 25 MG TAB PO SCH (20:44)
[2019-07-23] MEDS: Escitalopram Oxalate 10 mg Tablet PO SCH (20:45)
[2019-07-23] MEDS: Famotidine/PF 20 mg/2ml Vial SLOW IVP SCH (20:45)
--- NOTE | 2019-07-24 01:41 | PRG ---
DATE OF SERVICE: 07/23/2019 SUBJECTIVE: The patient remains on the surgical floor. He is status post ground level fall in which he sustained a left hip fracture. He has undergone open reduction and internal fixation of same. He has also been monitored for acute kidney injury which has improved with his creatinine returning almost to baseline. The patient due to his previous state of health of severe Alzheimer dementia, blindness, and significant hearing loss, it has been slow moving with physical therapy. Nurses report minimal food intake. He is remained on IV fluids for hydration. The day team had discuss with family tube feeds and they declined. PHYSICAL EXAMINATION: VITAL SIGNS: Stable. The patient is afebrile. GENERAL: The patient is resting comfortably in bed. He is asleep. I did not disturb him for an exam. He appears to be comfortable. RESPIRATIONS: Appear nonlabored. ASSESSMENT/PLAN: 1. Status post ground level fall. 2. Status post open reduction and internal fixation of left hip fracture. 3. Acute kidney injury, improved. PLAN: Will be to continue supportive care. Discuss placement options with family tomorrow. There is one note that states that the patient will be going back to [facility] tomorrow. Job ID: [id number]
[2019-07-24] MEDS: Acetaminophen 500 MG TAB PO SCH ×3 (05:45→17:26)
[2019-07-24 06:01] LABS: Anion Gap 11 mmol/L (10-20); BUN (Urea Nitrogen) 26 mg/dL (8.4-25.7); Calc. Creatinine Clearance 53 mL/min (70-130); Calcium 8.3 mg/dL (7.8-10.44); Carbon Dioxide 23 mmol/L (23-31); Chloride 116 mmol/L (98-107); Estimated GFR-MDRD 59; Glucose 186 mg/dL (83-110); Magnesium 1.7 mg/dL (1.6-2.6); Phosphorus 1.7 mg/dL (2.3-4.7); Sodium 146 mmol/L (136-145)
[2019-07-24] MEDS: HumaLOG 300 UNITS/3 ML VIAL SC PRN ×4 (06:22→22:02)
[2019-07-24] MEDS: Metoprolol Tartrate 50 MG TAB PO SCH ×2 (08:14→21:37)
[2019-07-24] MEDS: Amlodipine 5 MG TAB PO SCH (08:14)
[2019-07-24] MEDS: Heparin 5,000 UNITS/ML VIAL SC SCH ×2 (08:14→21:39)
[2019-07-24] MEDS: Polyethylene Glycol 3350 17 GM Packet PO SCH (08:15)
[2019-07-24] MEDS: cloNIDine 0.2 MG TAB PO SCH ×2 (08:15→21:37)
[2019-07-24] MEDS: Ascorbic Acid 500 mg Chewable Tablet PO SCH ×2 (08:15→21:39)
[2019-07-24] MEDS: Atorvastatin Calcium 40 MG TAB PO SCH (08:15)
[2019-07-24] MEDS: Tamsulosin HCl 0.4 MG CAP PO SCH (08:15)
[2019-07-24] MEDS: Senokot S 8.6-50 MG TAB PO SCH ×2 (08:15→21:39)
[2019-07-24] MEDS: Triamcinolone 0.1% Cream 15 GM TUBE TOP SCH (08:15)
[2019-07-24] MEDS: Pantoprazole 40 MG GRANULES PACKET PO SCH (08:15)
[2019-07-24] MEDS: Ferrous Sulfate 325 MG TAB PO SCH ×2 (08:15→17:26)
[2019-07-24] MEDS: traMADol HCl 50 MG TAB PO PRN ×2 (08:16→21:36)
[2019-07-24] MEDS ORDERED: PHOS-NAK 1 PKT PACK PO SCH (09:00)
[2019-07-24] MEDS: Cyclobenzaprine 10 MG TAB PO PRN (14:52)
--- NOTE | 2019-07-24 17:50 | PRG ---
DATE OF SERVICE: 07/24/2019 SUBJECTIVE: Mr. Beard is an 88-year-old male with history of Alzheimer dementia, status post ground level fall with left hip fracture. The patient underwent ORIF of left hip fracture. Today, the patient is more alert and awake, interacts with the conversation, still refusing to eat adequate meal. The patient is currently on Cabral catheter for retention with adequate urine output. Vital signs are stable. OBJECTIVE: GENERAL: The patient is lying in bed comfortable ,with no acute respiratory distress. VITAL SIGNS: Temperature 98.8, heart rate 99, respiratory rate 18, O2 saturation 94% on room air, blood pressure 173/80. LUNGS: Clear bilaterally. HEART: Regular rate and rhythm. ABDOMEN: Soft and nondistended. EXTREMITIES: Neurovascularly intact x4. NEUROLOGIC: No focal neurology deficits. ASSESSMENT: 1. Status post ground level fall. 2. Left hip fracture, open reduction and internal fixation of left hip fracture, postoperative day 4. 3. Acute kidney injury, resolved. 4. History of coronary artery disease; dementia, Alzheimer; diabetes; hypertension; CVA; and BPH; stable. PLAN: Continue supportive care. Continue pain control. Continue working with PT and OT. Await for insurance authorization, so that he can go back to [facility]. Job ID: [id number]
[2019-07-24] MEDS ORDERED: Famotidine 20 MG TAB PO SCH (21:00)
[2019-07-24] MEDS: Losartan 25 MG TAB PO SCH (21:38)
[2019-07-24] MEDS: Escitalopram Oxalate 10 mg Tablet PO SCH (21:39)
--- NOTE | 2019-07-24 23:19 | PRG ---
DATE OF SERVICE: 07/24/2019 SUBJECTIVE: The patient remains on the surgical floor. He is status post ground level fall, in which he sustained a left hip fracture. He is postop day 5, status post open reduction and internal fixation of the same. He has been waiting placement, primarily insurance authorization for him to return to [facility]. The patient reportedly had no issues during the day. OBJECTIVE: VITAL SIGNS: Stable. The patient is afebrile. GENERAL: The patient is resting comfortably in bed. He is awake tonight when I visited him. He looks around, acknowledges that I am in the room, makes eye contact, but does not interact with me and did not follow commands. This may be inhibited by his vision problems and his hearing, but this appeared to be his baseline from previous visit to mine. His respirations are nonlabored. His postop dressing is clean, dry, and intact. ASSESSMENT: 1. Status post ground level fall. 2. Postop day #5, status post open reduction and internal fixation of left hip fracture. 3. Acute kidney injury, resolved. PLAN: Plan will be to continue supportive care. Encourage physical and occupational therapy and await final placement decision. Job ID: [id number]
[2019-07-25] MEDS: Acetaminophen 500 MG TAB PO SCH ×5 (00:18→23:19)
[2019-07-25] MEDS: HumaLOG 300 UNITS/3 ML VIAL SC PRN ×4 (05:46→20:44)
[2019-07-25] MEDS: Pantoprazole 40 MG GRANULES PACKET PO SCH (08:57)
[2019-07-25] MEDS: Polyethylene Glycol 3350 17 GM Packet PO SCH (08:57)
[2019-07-25] MEDS: Amlodipine 5 MG TAB PO SCH (08:57)
[2019-07-25] MEDS: Senokot S 8.6-50 MG TAB PO SCH ×2 (08:57→20:41)
[2019-07-25] MEDS: Metoprolol Tartrate 50 MG TAB PO SCH ×2 (08:58→20:39)
[2019-07-25] MEDS: Atorvastatin Calcium 40 MG TAB PO SCH (08:58)
[2019-07-25] MEDS: Ascorbic Acid 500 mg Chewable Tablet PO SCH ×2 (08:58→20:40)
[2019-07-25] MEDS: Ferrous Sulfate 325 MG TAB PO SCH ×2 (08:59→17:04)
[2019-07-25] MEDS: Tamsulosin HCl 0.4 MG CAP PO SCH (08:59)
[2019-07-25] MEDS ORDERED: cloNIDine 0.2 MG TAB PO SCH (09:00)
[2019-07-25] MEDS: cloNIDine 0.2 MG TAB PO SCH ×4 (09:47→20:41)
[2019-07-25] MEDS: Dutasteride 0.5 MG CAP PO SCH (10:25)
[2019-07-25] MEDS: Clopidogrel Bisulfate 75 MG TAB PO SCH (10:26)
--- NOTE | 2019-07-25 11:25 | PRG ---
DATE OF SERVICE: 07/25/2019 SUBJECTIVE: The patient remains on the surgical floor. He is postop of open reduction and internal fixation of a left hip fracture. He is awaiting placement at [facility] to return to skilled nursing. As of this morning, he still had a Cabral catheter. He has a history of BPH. We will remove the Cabral catheter today and await voiding. Otherwise, no complaints at this time. Of note, the patient is also deaf and mute, but can read lips and follow commands. OBJECTIVE: VITAL SIGNS: Temperature of 99.1, pulse of 109, respirations 18, O2 sats 97% on room air, and blood pressure 172/91. GENERAL: The patient is resting comfortably in bed. He was sitting on the side of the bed at the time of examination. He agrees that he has no complaints at this time. RESPIRATIONS: His respirations are nonlabored. He is breathing comfortably. No evidence of respiratory distress. MSK: His postop dressing is clean, dry, and intact. NEUROLOGIC. Unremarkable. He moves all 4 extremities. ASSESSMENT: 1. Status post ground-level fall. 2. Postop day #6 status post open reduction and internal fixation of left hip fracture. 3. Acute kidney injury, resolved. 4. History of Alzheimer dementia, coronary artery disease, diabetes, hypertension, cerebrovascular accident, anxiety, benign prostatic hyperplasia, depression, hyperlipidemia, blindness, deafness, gastroesophageal reflux, and malaise. PLAN: Plan will be to continue supportive care, encourage physical and occupational therapy, and await final insurance approval of placement. In regard to his hypertension, his blood pressure is elevated throughout his stay in the hospital ; however, it was elevated more so than days prior. We will restart his home clonidine of one tab p.o. q.i.d. of 0.2 mg and monitor his vital signs closely. We discontinued his Cabral this morning. We will await voiding trial and bladder scan intermittently to check for signs of retention. DISPOSITION: Stable, awaiting insurance approval to send back to [facility]. The patient was seen and examined by Dr. Miguel and Dr. Bárbara Barnes, PGY-1. Job ID: [id number] MTDD
[2019-07-25] MEDS: Triamcinolone 0.1% Cream 15 GM TUBE TOP SCH (17:47)
[2019-07-25] MEDS: Losartan 25 MG TAB PO SCH (20:39)
[2019-07-25] MEDS: Escitalopram Oxalate 10 mg Tablet PO SCH (20:39)
[2019-07-25] MEDS: Cyclobenzaprine 10 MG TAB PO PRN (20:41)
--- NOTE | 2019-07-25 23:32 | PRG ---
DATE OF SERVICE: 07/25/2019 SUBJECTIVE: The patient was seen on the surgical floor during the evening rounds. The patient is postop day #6, status post open reduction and internal fixation of a left hip fracture. The patient is currently resting comfortably. The patient did have some urinary retention earlier today and was in and out cath x1. Nursing staff reports that the patient just recently voided 50 mL. OBJECTIVE: VITAL SIGNS: Stable, afebrile. GENERAL: Elderly male, well appearing, resting comfortably in bed. RESPIRATORY: Respirations are even and nonlabored, no respiratory distress. ASSESSMENT: 1. Status post ground level fall. 2. Postop day #6, status post open reduction and internal fixation of left hip fracture. 3. Acute kidney injury, resolved. 4. History of Alzheimer dementia, coronary artery disease, diabetes, hypertension, cerebrovascular accident, anxiety, benign prostatic hyperplasia, depression, hyperlipidemia, blindness, deafness, gastroesophageal reflux, amylase. PLAN: Continue supportive care and encourage physical and occupational therapy. Continue to monitor the patient's urinary retention and in and out cath if needed. The patient is ready for discharge at this time. Job ID: [id number]
[2019-07-26] MEDS: Acetaminophen 500 MG TAB PO SCH ×2 (05:27→13:31)
[2019-07-26] MEDS: HumaLOG 300 UNITS/3 ML VIAL SC PRN ×2 (05:29→13:30)
[2019-07-26] MEDS: cloNIDine 0.2 MG TAB PO SCH ×2 (09:00→13:30)
[2019-07-26] MEDS: Ferrous Sulfate 325 MG TAB PO SCH (09:00)
[2019-07-26] MEDS: Pantoprazole 40 MG GRANULES PACKET PO SCH (09:01)
[2019-07-26] MEDS: Tamsulosin HCl 0.4 MG CAP PO SCH (09:01)
[2019-07-26] MEDS: Metoprolol Tartrate 50 MG TAB PO SCH (09:01)
[2019-07-26] MEDS: Ascorbic Acid 500 mg Chewable Tablet PO SCH (09:01)
[2019-07-26] MEDS: Amlodipine 5 MG TAB PO SCH (09:01)
[2019-07-26] MEDS: Clopidogrel Bisulfate 75 MG TAB PO SCH (09:01)
[2019-07-26] MEDS: Dutasteride 0.5 MG CAP PO SCH (09:01)
[2019-07-26] MEDS: Atorvastatin Calcium 40 MG TAB PO SCH (09:01)
[2019-07-26] MEDS: Polyethylene Glycol 3350 17 GM Packet PO SCH (09:02)
[2019-07-26] MEDS: Senokot S 8.6-50 MG TAB PO SCH (09:02)
[2019-07-26 11:32] VITALS: BP 146/76; TEMP 98.1
[2019-07-26] MEDS: Triamcinolone 0.1% Cream 15 GM TUBE TOP SCH (13:30)
--- NOTE | 2019-07-26 14:27 | DIS ---
DATE OF ADMISSION: 07/20/2019 DATE OF DISCHARGE: 07/26/2019 ADMISSION DIAGNOSES: Found down on Plavix, left intertrochanteric femur fracture, and acute kidney injury. DISCHARGE DIAGNOSES: Found down on Plavix, left intertrochanteric femur fracture, and acute kidney injury CONSULTING PHYSICIAN: Dr. Aguilar of Orthopedic Surgery. PROCEDURES PERFORMED: The patient went to the OR on July 19, 2018, and had an open reduction and internal fixation of the left intertrochanteric femur fracture. HOSPITAL COURSE: The patient is an 88-year-old male, presented to the emergency department via EMS after he was found down in his [facility]. The patient is known to get up without assistance. He is deaf mute and has difficulties getting around at baseline. He was evaluated and found to have a left intertrochanteric femur fracture. Dr. Aguilar of Orthopedic Surgery was consulted, and he took the patient to the OR the same day, where the patient received an ORIF of the left intertrochanteric femur fracture. Postoperatively, he worked with Physical and Occupational Therapy. He was restarted on all of his home medications. The patient does have a history of urinary retention. Subsequently, Avodart was added to his already Flomax. Cabral was discontinued after retention, and the patient was able to void successfully with minimal postvoid residual. He was discharged back to his [facility], but on the long term side. DISCHARGE DISPOSITION: [facility] facility. DISCHARGE CONDITION: Satisfactory. PHYSICAL EXAMINATION: VITAL SIGNS: Temperature 98.1, pulse 72, respirations 18, oxygen saturation 97% on room air. GENERAL: Well-appearing elderly male, sitting up at edge of bed with no signs of acute distress. PULMONARY: Equal chest rise and fall. No signs of acute respiratory distress. CARDIAC: Regular rate and rhythm. No murmurs, gallops, or rubs. GI: Abdomen is soft, nontender, and nondistended. EXTREMITIES: 2+ pulses in all extremities. Gross motor and sensation are intact. No significant swelling noted. NEUROLOGIC: Mentation is at baseline. DISCHARGE INSTRUCTIONS: The patient was discharged to a long term facility. He is weightbearing as tolerated in all extremities. Activity as tolerated. He has a diabetic diet with Suplena t.i.d. He would have incentive spirometry as well as a walker. He will work with PT and OT. DISCHARGE MEDICATIONS: Include: 1. Tylenol. 2. Amlodipine. 3. Vitamin C. 4. Atorvastatin. 5. Clonidine. 6. Clopidogrel. 7. Avodart. 8. Lexapro. 9. Ferrous sulfate. 10. Irbesartan. 11. Metoprolol. 12. Pantoprazole. 13. MiraLAX. 14. Seroquel. 15. Senokot. 16. Flomax. 17. Triamcinolone cream. 18. Tramadol. FOLLOWUP APPOINTMENTS: The patient is to follow up with his PCP within the next 2 weeks for re-evaluation of his home medications. No followup is needed with Trauma Surgery. The patient will also follow up with Dr. Aguilar. This is merely a summary of the patient's hospitalization. For full details, please see his medical record in its entirety. Job ID: [id number]
--- NOTE | 2019-07-26 14:36 | PRG ---
DATE OF SERVICE: 07/26/2019 SUBJECTIVE: On the day of discharge, the patient was examined and he was resting comfortably in bed. The patient is postop day 7, status post open reduction and internal fixation of a left hip fracture. He was resting comfortably this morning and voiding normally. OBJECTIVE: VITAL SIGNS: Stable, afebrile. GENERAL: Elderly male, well appearing, resting comfortably in bed. RESPIRATORY: Respirations are even and nonlabored. No signs of respiratory distress. NEUROLOGIC: Grossly intact. Moves all 4 extremities. Assessment and Plan: Patient is being discharged, please see discharge summary. The patient was seen and examined by Dr. Miguel. Job ID: [id number] MTDD
--- NOTE | 2019-07-26 14:37 | DIS ---
DATE OF ADMISSION: 07/20/2019 DATE OF DISCHARGE: 07/26/2019 ADMITTING ATTENDING: Hao Miguel DO DISCHARGE ATTENDING: Hao Miguel DO CONSULTS: Orthopedics, Dr. Aguilar. PROCEDURES: Open reduction and internal fixation of left intertrochanteric femur fracture on 07/19/2019. PRIMARY DIAGNOSIS: Left intertrochanteric femur fracture. SECONDARY DIAGNOSES: 1. Coronary artery disease. 2. Alzheimer's dementia. 3. Diabetes. 4. Hypertension. 5. History of cerebrovascular accident. 6. benign prostatic hyperplasia. 7. Depression. 8. Anxiety. 9. Hyperlipidemia. 10. Gastroesophageal reflux disease. 11. History of deafness and impaired vision. DISCHARGE MEDICATIONS: 1. Atorvastatin. 2. Clonidine. 3. Plavix. 4. Lexapro. 5. Irbesartan. 6. Metoprolol. 7. Zofran. 8. Protonix. 9. Quetiapine. 10. Tamsulosin. 11. Triamcinolone topical. 12. Tylenol. 13. Amlodipine. 14. Vitamin C. 15. Flexeril. 16. Avodart. 17. Feosol. 18. MiraLAX. 19. Senna. 20. Ultram. Discontinued medications: None. HISTORY OF PRESENT ILLNESS AND HOSPITAL COURSE: Mr. Beard is an 88-year-old gentleman, who presented to the emergency department after he was found down in his correction. He was found to have a left hip fracture. He has a history of Alzheimer disease. He is also deaf and somewhat blind. Therefore, history was difficult to obtain. At the time of the fall, he was on Plavix. On initial presentation, a hip x-ray was obtained, which showed an intertrochanteric fracture of the left femur with 2 cm of displacement as well as proximal migration of the lesser trochanter by 2.5 cm. A femur x-ray showed the intertrochanteric fracture as well. An x-ray of his pelvis showed subtle lytic foci of both pubic rami, which may reflect aggressive demineralization versus myelomatous process. His chest x-ray showed no acute cardiopulmonary processes. His C-spine showed no acute osseous abnormalities and a CT of the brain showed no intracranial post-traumatic sequela. The patient was admitted to the Trauma Service and taken back for surgery on the same day of admission for open reduction and internal fixation of the left intertrochanteric fracture. The patient tolerated the procedure well. After the operation, he tolerated physical and occupational therapy with pain management managed by the Trauma Team. Overall, he recovered well. He did have some urinary retention, which resulted in placement of a Cabral catheter, which was removed and he continued to void normally. The [facility] be [facility] to a [facility] facility. DISPOSITION: Stable. DISCHARGE INSTRUCTIONS: 1. Location: detention. 2. Diet: Regular with Suplena t.i.d. as needed for supplementation. 3. Activity: Ad christo. 4. Followup: Follow up with primary care physician and orthopedic physician after discharge from the hospital. The patient was seen and examined by Dr. Miguel. Job ID: [id number]
== END 2019-07-26 13:40 | DRG 481 ==
LOC: ERS 06:44 → SURG A 11:11 → SDC 11:12 → SURG A 15:37 → SDC 07-20 08:21 → SURG A 07-20 09:22
PROVIDERS: ADMIT Surgery; ATTEND Surgery
PROC: 0QS704Z Reposition Left Upper Femur with Internal Fixation Device, Open Approach (ICD-10-PCS; principal; 2019-07-19)
DX: S72.142A Displaced intertrochanteric fracture of left femur, initial encounter for closed fracture (principal); N17.9 Acute kidney failure, unspecified; Z66 Do not resuscitate; H91.3 Deaf nonspeaking, not elsewhere classified; I25.10 Atherosclerotic heart disease of native coronary artery without angina pectoris; G30.9 Alzheimer's disease, unspecified; F02.80 Dementia in other diseases classified elsewhere, unspecified severity, without behavioral disturbance, psychotic disturbance, mood disturbance, and anxiety; E11.9 Type 2 diabetes mellitus without complications; I10 Essential (primary) hypertension; N40.1 Benign prostatic hyperplasia with lower urinary tract symptoms; R33.8 Other retention of urine; F41.9 Anxiety disorder, unspecified; E78.5 Hyperlipidemia, unspecified; K21.9 Gastro-esophageal reflux disease without esophagitis; H54.7 Unspecified visual loss; W18.30XA Fall on same level, unspecified, initial encounter; Y92.129 Unspecified place in nursing home as the place of occurrence of the external cause; Z79.899 Other long term (current) drug therapy; Z79.4 Long term (current) use of insulin; Z86.73 Personal history of transient ischemic attack (TIA), and cerebral infarction without residual deficits; Z79.02 Long term (current) use of antithrombotics/antiplatelets; Z91.048 Other nonmedicinal substance allergy status; Z99.3 Dependence on wheelchair
CPT/HCPCS: 36415; 36416; 70450; 71045; 72125; 72170; 76000; 80048; 80053; 82550; 83605; 83735; 84100; 84484; 85025; 85610; 85730; 86850; 86900; 86901; 93005; 94799; 96374; C1713; C1769; J0360; J0690; J1642; J1644; J1815; J1885; J2250; J2270; J2405; J2550; J3475; J7050; S0028

== ENCOUNTER 2019-08-29 17:11 | Emergency (ER) | payer MEDICARE ==
--- NOTE | 2019-08-29 18:30 | CT ---
CT BRAIN WITHOUT CONTRAST: HISTORY:Fall, headache COMPARISON:07/19/2019 FINDINGS: There are foci of decreased attenuation in the periventricular white matter, consistent with chronic small vessel ischemic disease. The changes of cortical atrophy and old infarctions in the left cerebellar hemisphere, left basal ganglia and right thalamus. No evidence of acute infarct, hemorrhage, midline shift or abnormal extra-axial fluid collections is seen. The ventricular size is appropriate and the basilar cisterns are patent. The bony calvarium is intact. The visualized paranasal sinuses and mastoid air cells are well aerated. IMPRESSION: No CT evidence of acute intracranial process.
--- NOTE | 2019-08-29 18:40 | RAD ---
LEFT HIP THREE VIEWS: 08/29/19 HISTORY: Fall. Left hip pain. History of hip surgery. FINDINGS/IMPRESSION: There is an angled compression screw internally fixing the comminuted intertrochanteric fracture note d on 07/19/19. The fracture fragments from the greater and lesser trochanter are present. The fracture line is again visualized. The compression screw is in good position and alignment internally fixing t he intertrochanteric fracture. POS: OFF
--- NOTE | 2019-08-29 18:57 | RAD ---
RIGHT WRIST 3 VIEWS: HISTORY: Right wrist pain, injury FINDINGS: No acute fracture or dislocation is identified. If symptoms do not improve, a follow-up exam should be obtained in 7-10 days.
--- NOTE | 2019-08-29 19:03 | CT ---
CT CERVICAL SPINE WITH CORONAL AND SAGITTAL REFORMATS: 08/29/19 HISTORY: Fall, trauma to the cervical spine. COMPARISON: 07/19/19. FINDINGS/IMPRESSION: Multilevel degenerative changes are again seen. No acute fracture, subluxation, or facet malalignmen t is noted. POS: OFF
--- NOTE | 2019-08-29 19:24 | RAD ---
XR Shoulder Rt 3 View STANDARD HISTORY: Fall, right shoulder pain FINDINGS: No fracture or dislocation is identified.
--- NOTE | 2019-08-29 19:24 | RAD ---
XR Elbow Rt 2 View HISTORY: Fall, right elbow pain FINDINGS: No definite fracture or dislocation is identified.
== END 2019-08-29 20:20 | disposition home or self-care (01) ==
LOC: ERS 17:11
DX: S50.311A Abrasion of right elbow, initial encounter (principal); K21.9 Gastro-esophageal reflux disease without esophagitis; F41.9 Anxiety disorder, unspecified; E11.9 Type 2 diabetes mellitus without complications; E78.5 Hyperlipidemia, unspecified; I10 Essential (primary) hypertension; E78.00 Pure hypercholesterolemia, unspecified; G30.9 Alzheimer's disease, unspecified; F02.80 Dementia in other diseases classified elsewhere, unspecified severity, without behavioral disturbance, psychotic disturbance, mood disturbance, and anxiety; N40.0 Benign prostatic hyperplasia without lower urinary tract symptoms; Z86.73 Personal history of transient ischemic attack (TIA), and cerebral infarction without residual deficits; Z79.899 Other long term (current) drug therapy; Z79.4 Long term (current) use of insulin; W06.XXXA Fall from bed, initial encounter
CPT/HCPCS: 70450; 72125; 93005

== ENCOUNTER 2019-09-19 20:19 | Inpatient (IN) | payer MEDICARE ==
[2019-09-19 21:03] LABS: #Monocytes 1.2 thou/uL (0.11-0.59); #Neutrophils 16.5 thou/uL (1.40-6.50); %Basophils 0.1 % (0.0-1.0); %Eosinophils 0.1 % (0.0-10.0); %Lymphocytes 5.6 % (21.0-51.0); %Monocytes 6.6 % (0.0-10.0); %Neutrophils 87.7 % (42.0-75.0); Hemoglobin 12.2 g/dL (14.0-18.0); Mean Corpuscular HGB CONC 31.7 g/dL (32.0-36.0); Mean Corpuscular Hemoglobin 30.7 pg (27.0-31.0); Mean Corpuscular Volume 96.8 fL (78.0-98.0); Mean Platelet Volume 6.7 fL (7.4-10.4); Platelet Count 252 thou/uL (130-400); RBC Distribution Width 14.3 % (11.5-14.5); Red Blood Cell (RBC) Count 3.98 mill/uL (4.70-6.10); White Blood Cell (WBC) Count 18.8 thou/uL (4.8-10.8)
--- NOTE | 2019-09-19 21:17 | RAD ---
XR Chest 1 View Portable HISTORY: Tachycardia and fever. COMPARISON: 07/19/2019 exam. FINDINGS: Heart size is within normal limits. There are retrocardiac parenchymal changes. Right lung appears clear. IMPRESSION: Left lower lobe atelectasis versus early infiltrate.
--- NOTE | 2019-09-19 21:17 | CT ---
CT Brain WO Con HISTORY: Altered mental status. History of stroke. COMPARISON: 08/29/2019 exam. FINDINGS: There is generalized ventricular and sulcal prominence. Decreased attenuation to the perive ntricular white matter is noted. Old bilateral lacunar infarcts are seen. These findings are stable. No hemorrhage or mass effect. IMPRESSION: No acute intracranial abnormalities. Stable exam.
[2019-09-19 21:21] LABS: ALT (SGPT) 16 U/L (8-55); AST (SGOT) 14 U/L (5-34); Albumin 3.4 g/dL (3.4-4.8); Alkaline Phosphatase 185 U/L (40-110); Anion Gap 15 mmol/L (10-20); BUN (Urea Nitrogen) 48 mg/dL (8.4-25.7); Bilirubin, Total 0.6 mg/dL (0.2-1.2); Calc. Creatinine Clearance 0 mL/min (70-130); Calcium 9.5 mg/dL (7.8-10.44); Carbon Dioxide 24 mmol/L (23-31); Chloride 105 mmol/L (98-107); Estimated GFR-MDRD 23; Globulin 3.5 g/dL (2.4-3.5); Glucose 234 mg/dL (83-110); Potassium 4.6 mmol/L (3.5-5.1); Protein, Total 6.9 g/dL (5.8-8.1); Sodium 139 mmol/L (136-145)
[2019-09-19] MEDS ORDERED: Cefepime 2 GM VIAL ONE (21:39)
[2019-09-19 21:51] LABS: Bilirubin Negative (Negative); Blood, Urine Negative (Negative); Clarity Turbid (Clear); Glucose, Urine (Dipstick) Normal (Negative); Leukocyte Negative Leu/uL (Negative); Nitrite Negative (Negative); Protein, Urine (Dipstick) 30 mg/dL (Neg-Trace); RBC/HPF 0-3 HPF (0-3); Renal Epithelial 0-3 HPF (None Seen); Squamous Epithelial 0-3 HPF (0-3); Urobilinogen Normal mg/dL (Less than 2); WBC/HPF 0-3 HPF (0-3)
[2019-09-19 21:58] LABS: Bacteria/HPF 1+ HPF (None Seen)
[2019-09-19] MEDS ORDERED: Morphine 4 MG/ML VIAL ONE (22:37)
[2019-09-19] MEDS ORDERED: Acetaminophen 650 MG Suppository ONE (22:37)
[2019-09-19] MEDS ORDERED: Ketorolac Tromethamine 30 MG/ML VIAL ONE (23:38)
[2019-09-20 00:02] LABS: Lactic Acid 1.6 mmol/L (0.5-2.2)
--- NOTE | 2019-09-20 00:23 | PDOC.FPRHP ---
- History of Present Illness Chief Complaint: fever History of Present Illness: 89 yo male with PMHx of alzheimer's dementia with dysphagia, DM, HLD, HTN, L- eye blindness, CVA with left-side neglect presents from [place] with a fever. He took one dose of bactrim at the [place] earlier for a boil that burst earlier today. Had similar boil 2 weeks ago treated with bactrim. Hx of hospitalization in July for a hip fracture. Daughter states that he has been a little confused a few days ago, however today he knew his daughter and knew where he was, which is his baseline. Daughter c/o boil on his buttocks that is causing pain. Denies shortness or increased work of breathing. Endorses chronic occasional cough, but denies recent worsening of his cough. He does not use oxygen at the [place]. D/t his dementia he does not eat very much per his daughter, and she endorses dysphagia since his last stroke. He reportedly was placed on a liquid diet per speech during last hospitalization that has not been followed at the [place]. Per daughter patient eats solid foods without a feeder. She denies any coughing or choking noted during eating. Denies any recent n/v/d, denies complaints of abdominal pain. ED Course: 2L NS, vanc, cefepime, toradol, morphine, tylenol - Allergies/Adverse Reactions Allergies Allergy/AdvReac Type Severity Reaction Status Date / Time zolpidem [From Bradyien] Allergy Verified 07/19/19 17:46 - Home Medications Medication Instructions Recorded Confirmed Type Atorvastatin Calcium 40 mg PO DAILY 07/19/19 07/19/19 History Clopidogrel Bisulfate [Clopidogrel] 1 tab PO DAILY 07/19/19 07/19/19 History Escitalopram Oxalate [Lexapro] 10 mg PO DAILY 07/19/19 07/19/19 History Insulin Aspart Prot/Insuln Asp 17 units SC BID 07/19/19 07/19/19 History [Novolog Mix 70-30 Vial] Irbesartan 1 tab PO HS 07/19/19 07/19/19 History Metoprolol Tartrate 50 mg PO BID 07/19/19 07/19/19 History Ondansetron HCl [Zofran] 4 mg PO Q6HR PRN 07/19/19 07/19/19 History Pantoprazole Sodium 40 mg PO DAILY 07/19/19 07/19/19 History QUEtiapine Fumarate [SEROquel] 25 mg PO QID 07/19/19 07/19/19 History Tamsulosin HCl [Flomax] 0.4 mg PO DAILY 07/19/19 07/19/19 History Triamcinolone Acetonide [Kenalog 1 applic TOP DAILY 07/19/19 07/19/19 History 0.1% Cream] cloNIDine HCl 1 tab PO QID 07/19/19 07/19/19 History Acetaminophen [Tylenol Extra 1,000 mg PO Q6HR tab 07/26/19 Rx Strength] Amlodipine [Norvasc] 10 mg PO DAILY tab 07/26/19 Rx Ascorbic Acid [Vitamin C] 500 mg PO BID tab 07/26/19 Rx Cyclobenzaprine [Flexeril] 10 mg PO BIDPRN PRN tab 07/26/19 Rx Dutasteride [Avodart] 0.5 mg PO DAILY cap 07/26/19 Rx Ferrous Sulfate [Feosol] 325 mg PO BID-WM tab 07/26/19 Rx Polyethylene Glycol 3350 [Miralax] 17 gm PO DAILY pk 07/26/19 Rx Sennosides/Docusate Sodium 2 tab PO BID tab 07/26/19 Rx [Senokot S] traMADol HCl [Ultram] 50 mg PO Q8H PRN #20 tab 07/26/19 Rx - History PMHx:Alzheimer's Dementia with dysphagia, DM, HLD, HTN, GERD, L-eye blindness, CVA with left sided neglect PSHx: cholecystectomy, L hip sx, cardiac stent 1997, hernia repair, cataract sx FHx: non-contributory Social:[place] bound; no smoking hx, no etoh or drug use - Review of Systems General: reports: fever/chills, weight/appetite/sleep changes Eyes: reports: other (L eye blindness) ENT: denies: nasal congestion, rhinorrhea Respiratory: reports: cough (chronic). denies: congestion, shortness of breath Cardiovascular: denies: chest pain, edema Gastrointestinal: denies: nausea, vomiting, diarrhea, constipation Genitourinary: denies: incontinence, dysuria Skin: reports: lesions (boil on buttocks). denies: rashes Musculoskeletal: denies: swelling Neurological: reports: other (left-sided neglect) - Vital signs BP: 95/54 HR: 107 RR: 16 Tmax: Pox: 97 % on RA Wt: 78.9kg - Physical Exam Constitutional: well developed, other (resting comfortably with daughter at bedside) HEENT: normocephalic and atraumatic, other (dry mucous membranes) Neck: supple, FROM Chest: no-tender to palpation, no lesions Heart: RRR, other (occasional PVC) Lungs: no respiratory distress, no retractions, other (decreased breath sounds LLL) Abdomen: soft, non-tender Musculoskeletal: other (decreased motion L arm and leg) Neurological: other (decreased motion L arm and leg, poor memory) Skin: other ([id number] wet-appearing area on R buttock without drainage or purulence; poor turgor) Heme/Lymphatic: other (senile purpura) Psychiatric: other (poor judgment and insight; poor memory) FMR H&P: Results - Labs Result Diagrams: 09/19/19 20:44 09/19/19 20:44 Lab results: WBC 18.8 thou/uL (4.8-10.8) H 09/19/19 20:44 Hgb 12.2 g/dL (14.0-18.0) L 09/19/19 20:44 Hct 38.5 % (42.0-52.0) L 09/19/19 20:44 MCV 96.8 fL (78.0-98.0) 09/19/19 20:44 Plt Count 252 thou/uL (130-400) 09/19/19 20:44 Neutrophils % 87.7 % (42.0-75.0) H 09/19/19 20:44 Sodium 139 mmol/L (136-145) 09/19/19 20:44 Potassium 4.6 mmol/L (3.5-5.1) 09/19/19 20:44 Chloride 105 mmol/L (98-107) 09/19/19 20:44 Carbon Dioxide 24 mmol/L (23-31) 09/19/19 20:44 BUN 48 mg/dL (8.4-25.7) H 09/19/19 20:44 Creatinine 2.60 mg/dL (0.7-1.3) H 09/19/19 20:44 Glucose 234 mg/dL (83-110) H 09/19/19 20:44 Lactic Acid 1.6 mmol/L (0.5-2.2) 09/19/19 23:37 Calcium 9.5 mg/dL (7.8-10.44) 09/19/19 20:44 Total Bilirubin 0.6 mg/dL (0.2-1.2) 09/19/19 20:44 AST 14 U/L (5-34) 09/19/19 20:44 ALT 16 U/L (8-55) 09/19/19 20:44 Alkaline Phosphatase 185 U/L (40-110) H 09/19/19 20:44 Serum Total Protein 6.9 g/dL (5.8-8.1) 09/19/19 20:44 Albumin 3.4 g/dL (3.4-4.8) 09/19/19 20:44 Urine Ketones Trace mg/dL (Negative) A 09/19/19 21:34 Urine Blood Negative (Negative) 09/19/19 21:34 Urine Nitrite Negative (Negative) 09/19/19 21:34 Ur Leukocyte Esterase Negative Krishna/uL (Negative) 09/19/19 21:34 Urine RBC 0-3 HPF (0-3) 09/19/19 21:34 Urine WBC 0-3 HPF (0-3) 09/19/19 21:34 Ur Squamous Epith Cells 0-3 HPF (0-3) 09/19/19 21:34 Urine Bacteria 1+ HPF (None Seen) A 09/19/19 21:34 - Radiology Interpretation Chest x-ray Status: report reviewed by me (LLL atelectasis vs early infiltrate) FMR H&P: A/P - Problem List (1) Sepsis Current Visit: Yes Status: Acute Code(s): A41.9 - SEPSIS, UNSPECIFIED ORGANISM (2) Pneumonia Current Visit: Yes Status: Acute Code(s): J18.9 - PNEUMONIA, UNSPECIFIED ORGANISM Qualifiers: Laterality: left Lung location: lower lobe of lung (3) Leukocytosis Current Visit: Yes Status: Acute Code(s): D72.829 - ELEVATED WHITE BLOOD CELL COUNT, UNSPECIFIED (4) Boil, buttock Current Visit: Yes Status: Acute Code(s): L02.32 - FURUNCLE OF BUTTOCK (5) GEORGES (acute kidney injury) Current Visit: Yes Status: Acute Code(s): N17.9 - ACUTE KIDNEY FAILURE, UNSPECIFIED (6) Dementia Current Visit: Yes Status: Chronic Code(s): F03.90 - UNSPECIFIED DEMENTIA WITHOUT BEHAVIORAL DISTURBANCE Qualifiers: Dementia type: Alzheimer's disease (7) HTN (hypertension) Current Visit: Yes Status: Chronic Code(s): I10 - ESSENTIAL (PRIMARY) HYPERTENSION (8) HLD (hyperlipidemia) Current Visit: Yes Status: Chronic Code(s): E78.5 - HYPERLIPIDEMIA, UNSPECIFIED (9) GERD (gastroesophageal reflux disease) Current Visit: Yes Status: Chronic Code(s): K21.9 - GASTRO-ESOPHAGEAL REFLUX DISEASE WITHOUT ESOPHAGITIS (10) History of CVA (cerebrovascular accident) Current Visit: Yes Status: Chronic Code(s): Z86.73 - PRSNL HX OF TIA (TIA), AND CEREB INFRC W/O RESID DEFICITS (11) BPH (benign prostatic hyperplasia) Current Visit: Yes Status: Chronic Code(s): N40.0 - BENIGN PROSTATIC HYPERPLASIA WITHOUT LOWER URINRY TRACT SYMP (12) DM2 (diabetes mellitus, type 2) Current Visit: Yes Status: Chronic - Plan Patient is an 89M with PMHx of alzheimer's dementia, L-eye blindness, GERD, DM2 , BPH, HLD, HTN, prior CVA with L-sided deficits admitted for sepsis 2/2 pneumonia #Sepsis 2/2 Pneumonia: CAP vs Aspiration -patient presents with fever of 102.3F rectally at snf -CXR: LLL atelectasis vs early infiltrate -WBC 18, lactic 2.4 -hx of dysphagia; eats whole food alone at [place] without feeder -hx of DM2 but CXR more c/w CAP vs aspiration pna -flu neg -started on cefepime and vanc in ED -will cover with rocephin and flagyl for coverage for strep and anaerobes at this time -blood cultures pending -tylenol prn for fever/pain #R buttock boil -patient has lesion on right buttock; per report it appeared as a boil that burst today -no erythema surrounding lesion, no current drainage -culture pending -wound care consulted, appreciate recs #GEORGES -creatinine 2.6, GFR 23 -up from 1.18 and 59 in July 2019 -likely due to poor PO intake as daughter states he drinks a "couple" of small 12oz water bottles each day -received 2L NS in ED, will continue with maintenance fluids -continue to monitor #PVCs -fairly frequent PVCs seen on threat monitoring analyst during evaluation -patient not complaining of chest pain at this time -will monitor on telemetry #DM2 -continue home 70/30 -ACHS accuchecks -ISS #HTN -hold home meds for now as BP 90s-100s/50s-60s in ED during evaluation -continue to monitor #HLD -continue home meds #GERD -continue home meds #Hx of CVA with L-sided deficits and dysphagia -continue home meds -speech consulted, appreciate recs -guide alpine consulted, appreciate recs #BPH -continue home meds DVT ppx: lovenox Diet: NPO Dispo: inpatient tele for continued IV abx, IV fluids, and monitoring on telemetry Code: DNR confirmed with DaughterMark FMR H&P: Upper Level - Plan Date/Time: 09/20/19 0017 89 yo gentleman with dementia who presents from the [place] with a fever and cough. CXR shows a left lower lobe pneumonia. We will admit and treat for sepsis 2/2 CAP and aspiration pneumonia and an GEORGES. We will fluid resuscitate him overnight for his GEORGES which appears prerenal and his tachycardia. Additionally, we will provide abx coverage with rocephin and flagyl. Since his pneumonia is a left lower lobar pneumonia and not multifocal, I am less concerned for pseudomonal coverage, however he does have risk factors. If he does not improve with rocephin and flagyl, I would consider adding coverage for pseudomonas. I am also less concerned for atypical pneumonia based on his presentation. He did get vanc and cefepime in the ER empirically. He also has a boil on his buttocks that burst earlier today, but there was no surrounding erythema that would make you think he has a cellulitis. He also has 1+ bacteria in his urine, and for this we will send a culture. We were unable to get much of a history from him d/ t his dementia. Per his daughter, he is a&ox2 at baseline. He also had diabetes and a recent CVA with left sided neglect per his daughter. We will watch him closely.
[2019-09-20] MEDS ORDERED: Acetaminophen 325 MG TAB PO PRN (00:43)
[2019-09-20] MEDS ORDERED: Dextrose 50% Abboject 50 ML SYRINGE SLOW IVP PRN (00:59)
[2019-09-20] MEDS ORDERED: Dextrose 5% in Water 1,000 ML IV PRN (00:59)
[2019-09-20 04:11] VITALS: BMI 27.3
[2019-09-20 04:30] LABS: #Lymphocytes 0.9 thou/uL (1.20-3.40); #Neutrophils 13.4 thou/uL (1.40-6.50); %Eosinophils 0.2 % (0.0-10.0); %Lymphocytes 5.8 % (21.0-51.0); %Monocytes 6.4 % (0.0-10.0); %Neutrophils 87.5 % (42.0-75.0); Hemoglobin 11.6 g/dL (14.0-18.0); Mean Corpuscular HGB CONC 31.1 g/dL (32.0-36.0); Mean Corpuscular Hemoglobin 30.3 pg (27.0-31.0); Mean Corpuscular Volume 97.3 fL (78.0-98.0); Mean Platelet Volume 6.7 fL (7.4-10.4); Platelet Count 182 thou/uL (130-400); RBC Distribution Width 14.5 % (11.5-14.5); Red Blood Cell (RBC) Count 3.83 mill/uL (4.70-6.10); White Blood Cell (WBC) Count 15.3 thou/uL (4.8-10.8)
[2019-09-20 04:40] LABS: Anion Gap 11 mmol/L (10-20); BUN (Urea Nitrogen) 44 mg/dL (8.4-25.7); Calc. Creatinine Clearance 34 mL/min (70-130); Calcium 8.2 mg/dL (7.8-10.44); Carbon Dioxide 18 mmol/L (23-31); Chloride 114 mmol/L (98-107); Estimated GFR-MDRD 37; Glucose 129 mg/dL (83-110); Potassium 4.3 mmol/L (3.5-5.1); Sodium 139 mmol/L (136-145)
[2019-09-20] MEDS: cefTRIAXone\\ROCEPHIN 1 GM in Sodium Chloride 0.9% 100 ML IVPB SCH (05:10)
[2019-09-20] MEDS: metroNIDAZOLE 500 MG in Premix Bag 1 BAG IVPB SCH ×3 (05:10→17:52)
[2019-09-20] MEDS: Sodium Chloride 0.9% 1,000 ML IV SCH ×3 (05:11→18:20)
[2019-09-20] MEDS: Enoxaparin Sodium 30 MG/0.3 ML SYRINGE SC SCH (09:39)
[2019-09-20] MEDS: HumaLOG 300 UNITS/3 ML VIAL SC PRN ×2 (12:34→17:51)
--- NOTE | 2019-09-20 14:47 | HP ---
I have examined the patient and discussed the case with Dr. Donna Cadena. I agree with her assessment and plan. HISTORY OF PRESENT ILLNESS: Briefly, Mr. Beard is an 89-year-old white man with a history of dementia, dysphagia as well as history of CVA. He resides in a local half-way. He was noted to have a fever last night and was transported to our ER for further evaluation. It was at that time, he was noted to be febrile with a high white count and left lower lobe infiltrate on chest x-ray. He has been admitted with a diagnosis of pneumonia, possibly aspiration. PHYSICAL EXAMINATION: VITAL SIGNS: His blood pressure is now 100/60, his heart rate is 100, respirations 16 and not labored. His room air pulse ox is 97%. GENERAL: He is well-developed, well-nourished, hard of hearing. He appears to be in no acute distress. EARS, NOSE, AND THROAT: Mucous membranes are dry. NECK: Supple. CARDIAC: Heart, rhythm regular. No gallop or murmur. Occasional PVC. LUNGS: Breath sounds are decreased, particularly at the left lower lobe. No wheezes. No use of accessory muscles or other signs of respiratory distress. ABDOMEN: Flat and soft without guarding or rebound. NEUROLOGIC: Difficult to evaluate because of his demented state. LABORATORY DATA: CBC; white count 18,800, hemoglobin 12.2, hematocrit 38.5 with an MCV of 96.8. Chemistries; sodium 139, potassium 4.6, chloride 105, bicarb 24, BUN 48, creatinine 2.60, glucose 234. IMAGING STUDIES: Chest x-ray, left lower lobe infiltrate. Heart size within normal limits. ASSESSMENT: 1. Pneumonia, possibly aspiration. 2. Acute kidney injury. 3. History of dementia. 4. History of cerebrovascular accident. PLAN: Admit, begin antibiotics, fluids. Job ID: [id number]
[2019-09-20 15:14] LABS: Creatinine, Urine 342.51 mg/dL (63-166); Sodium, Urine Less than 20 mmol/L (Not Available)
--- NOTE | 2019-09-20 16:06 | PDOC.BPN ---
- Brief Progress Note paged regarding pain from abscess vital signs stable, tachycardia currently, suspected from pain alzheimer's dementia patient will give morphine
[2019-09-20] MEDS: Morphine 4 MG/ML VIAL SLOW IVP PRN (16:32)
[2019-09-20] MEDS: Ferrous Sulfate 325 MG TAB PO SCH (17:52)
[2019-09-20] MEDS: Nystatin Cream 15 GM TUBE TOP SCH (20:28)
[2019-09-20] MEDS: Metoprolol Tartrate 50 MG TAB PO SCH (20:28)
[2019-09-20] MEDS: Ascorbic Acid 500 mg Chewable Tablet PO SCH (20:28)
[2019-09-21] MEDS: cefTRIAXone\\ROCEPHIN 1 GM in Sodium Chloride 0.9% 100 ML IVPB SCH (00:35)
[2019-09-21] MEDS: Morphine 4 MG/ML VIAL SLOW IVP PRN ×2 (00:35→08:10)
[2019-09-21] MEDS: metroNIDAZOLE 500 MG in Premix Bag 1 BAG IVPB SCH ×3 (02:00→17:20)
[2019-09-21] MEDS: Vancomycin HCl 750 MG in Sodium Chloride 0.9% 250 ML 250 ML IVPB SCH (05:17)
[2019-09-21] MEDS: Sodium Chloride 0.9% 1,000 ML IV SCH ×3 (05:17→17:44)
[2019-09-21] MEDS: Enoxaparin Sodium 30 MG/0.3 ML SYRINGE SC SCH (08:17)
[2019-09-21] MEDS: Ferrous Sulfate 325 MG TAB PO SCH ×2 (08:17→17:19)
[2019-09-21] MEDS: Dutasteride 0.5 MG CAP PO SCH (08:17)
[2019-09-21] MEDS: Ascorbic Acid 500 mg Chewable Tablet PO SCH ×2 (08:17→20:10)
[2019-09-21] MEDS: Clopidogrel Bisulfate 75 MG TAB PO SCH (08:17)
[2019-09-21] MEDS: Tamsulosin HCl 0.4 MG CAP PO SCH (08:18)
[2019-09-21] MEDS: Escitalopram Oxalate 10 mg Tablet PO SCH (08:18)
[2019-09-21] MEDS: Metoprolol Tartrate 50 MG TAB PO SCH ×2 (08:18→20:10)
[2019-09-21] MEDS: Polyethylene Glycol 3350 17 GM Packet PO SCH (08:18)
[2019-09-21] MEDS: Nystatin Cream 15 GM TUBE TOP SCH ×2 (08:24→20:11)
--- NOTE | 2019-09-21 08:43 | PDOC.FM ---
- Subjective Subjective: Pt resting comfortably, overnight he had Vanc started for concern for spreading cellulitis from R buttock abscess. - Objective Vital Signs & Weight: Vital Signs (12 hours) Temp Pulse Resp BP Pulse Ox 09/21/19 08:05 98.3 F 110 H 20 143/68 H 98 09/21/19 08:04 94 L 09/21/19 02:58 94 L 09/21/19 02:44 98.9 F 105 H 24 H 131/68 94 L 09/20/19 23:00 100.5 F H 102 H 24 H 124/59 L 94 L Weight Admit Weight 79.243 kg Weight 79.243 kg I&O: 09/20/19 09/21/19 09/22/19 06:59 06:59 06:59 Intake Total 1300 Balance 1300 Result Diagrams: 09/23/19 06:26 09/23/19 06:26 Phys Exam - Physical Examination Constitutional: NAD HEENT: moist MMs, sclera anicteric Neck: supple, full ROM Respiratory: no wheezing bilat insp/expiratory rhonchi Cardiovascular: no significant murmur tachy Gastrointestinal: soft, non-tender Musculoskeletal: no edema, pulses present non-verbal (chronic) Psychiatric: normal affect Skin: normal turgor Deviation from normal: erythema on RLE, retreated from drawn border last night Dx/Plan (1) Cellulitis and abscess of buttock Code(s): L02.31 - CUTANEOUS ABSCESS OF BUTTOCK; L03.317 - CELLULITIS OF BUTTOCK Status: Acute (2) GEORGES (acute kidney injury) Code(s): N17.9 - ACUTE KIDNEY FAILURE, UNSPECIFIED Status: Acute (3) Sepsis Code(s): A41.9 - SEPSIS, UNSPECIFIED ORGANISM Status: Acute (4) BPH (benign prostatic hyperplasia) Code(s): N40.0 - BENIGN PROSTATIC HYPERPLASIA WITHOUT LOWER URINRY TRACT SYMP Status: Chronic (5) DM2 (diabetes mellitus, type 2) Status: Chronic (6) Dementia Code(s): F03.90 - UNSPECIFIED DEMENTIA WITHOUT BEHAVIORAL DISTURBANCE Status: Chronic Qualifiers: Dementia type: Alzheimer's disease (7) GERD (gastroesophageal reflux disease) Code(s): K21.9 - GASTRO-ESOPHAGEAL REFLUX DISEASE WITHOUT ESOPHAGITIS Status: Chronic (8) HLD (hyperlipidemia) Code(s): E78.5 - HYPERLIPIDEMIA, UNSPECIFIED Status: Chronic (9) HTN (hypertension) Code(s): I10 - ESSENTIAL (PRIMARY) HYPERTENSION Status: Chronic (10) History of CVA (cerebrovascular accident) Code(s): Z86.73 - PRSNL HX OF TIA (TIA), AND CEREB INFRC W/O RESID DEFICITS Status: Chronic - Plan Plan: Patient is an 89M with PMHx of alzheimer's dementia, L-eye blindness, GERD, DM2 , BPH, HLD, HTN, prior CVA with L-sided deficits admitted for sepsis 2/2 pneumonia Sepsis 2/2 Pneumonia: CAP vs Aspiration A- Pt remains septic but maintaining pressures, fevered to 100.5 last night, tachycardic and tachypneic this AM. I suspect the fever was from spreading cellulitis. Pt does not require O2. Considering hx of dysphagia will cover for both CAP and aspiration pneumonia. P- rocephin and flagyl -add azithro -f/u on final BCx and UCx results -tylenol prn for fever/pain Cellulitis with R gluteal abscess. A- Improved from last night after starting vanc. wound culture prelim reads gm negative rods P- continue Vanc -f/u Cx GEORGES A- on presentation creatinine 2.6. It has improved from that with IVF though todays result is pending P- continue IVF PVCs -fairly frequent PVCs seen on shelter monitor during evaluation -patient not complaining of chest pain at this time -will monitor on telemetry DM2 -continue home 70/30 -ACHS accuchecks -ISS HTN -hold home meds for now as BP 90s-100s/50s-60s in ED during evaluation -continue to monitor HLD -continue home meds GERD -continue home meds Hx of CVA with L-sided deficits and dysphagia -continue home meds -speech consulted, appreciate recs -program director group work consulted, appreciate recs BPH -continue home meds DVT ppx: lovenox Code: DNR confirmed with Daughter, Mark Addendum - Attending - Attending Attestation Date/Time: 09/21/19 0908 I personally evaluated the patient and discussed the management with Dr. Pace I agree with the History, Examination, Assessment and Plan documented above with any addition or exceptions noted below. HD#1 Patient with Tmax 100.5. HR still mildly tachy. RR still elevated. Will continue to treat pneumonia as aspiration due to fever. Will add breathing treatments and steroids due to pneumonitis. Continue Vanc for cellulitis. Improved. Pull roberto. Stop IVFs. Stop azithro. Trend CPR. If not responding will need to adjust antibiotics to cover for psuedomonas. Irina
[2019-09-21 08:57] LABS: Hemoglobin 11.6 g/dL (14.0-18.0); Mean Corpuscular HGB CONC 31.9 g/dL (32.0-36.0); Mean Corpuscular Hemoglobin 31.3 pg (27.0-31.0); Mean Corpuscular Volume 98.3 fL (78.0-98.0); Mean Platelet Volume 7.9 fL (7.4-10.4); Platelet Count 200 thou/uL (130-400); RBC Distribution Width 14.4 % (11.5-14.5); Red Blood Cell (RBC) Count 3.72 mill/uL (4.70-6.10); White Blood Cell (WBC) Count 13.9 thou/uL (4.8-10.8)
[2019-09-21 09:24] LABS: ALT (SGPT) 10 U/L (8-55); AST (SGOT) 19 U/L (5-34); Albumin 2.6 g/dL (3.4-4.8); Alkaline Phosphatase 159 U/L (40-110); Anion Gap 13 mmol/L (10-20); BUN (Urea Nitrogen) 29 mg/dL (8.4-25.7); Bilirubin, Total 0.5 mg/dL (0.2-1.2); Calc. Creatinine Clearance 47 mL/min (70-130); Calcium 8.7 mg/dL (7.8-10.44); Carbon Dioxide 19 mmol/L (23-31); Chloride 117 mmol/L (98-107); Estimated GFR-MDRD 55; Globulin 3.4 g/dL (2.4-3.5); Glucose 147 mg/dL (83-110); Potassium 4.7 mmol/L (3.5-5.1); Sodium 144 mmol/L (136-145)
[2019-09-21 10:08] LABS: Band 34 % (5-11); Eosinophils 2 % (0-10); Lymphocytes 2 % (21-51); MDiff Complete? YES; Monocytes 4 % (0-10); Neutrophil 58 % (42-75); RBC Morphology Normal
[2019-09-21] MEDS: Azithromycin 500 MG in Sodium Chloride 0.9% 250 ML 250 ML IVPB SCH (10:27)
[2019-09-21] MEDS ORDERED: predniSONE 20 MG TAB PO SCH (11:00)
[2019-09-21 12:06] LABS: CRP (Inflammatory) 32.92 mg/dL (= or < 0.5)
[2019-09-21] MEDS ORDERED: methylPREDNISolone Sod Succ 40 MG VIAL IVP SCH (12:15)
[2019-09-21] MEDS: Acetaminophen 325 MG TAB PO SCH ×3 (12:19→23:05)
[2019-09-21 13:52] LABS: Magnesium 1.6 mg/dL (1.6-2.6)
[2019-09-21] MEDS: HumaLOG 300 UNITS/3 ML VIAL SC PRN ×2 (17:20→20:47)
[2019-09-21] MEDS: guaiFENesin ER 600 MG TAB PO SCH (20:10)
[2019-09-22] MEDS: cefTRIAXone\\ROCEPHIN 1 GM in Sodium Chloride 0.9% 100 ML IVPB SCH (01:38)
[2019-09-22] MEDS: Morphine 4 MG/ML VIAL SLOW IVP PRN (02:21)
[2019-09-22] MEDS: metroNIDAZOLE 500 MG in Premix Bag 1 BAG IVPB SCH ×2 (02:22→09:14)
[2019-09-22] MEDS: Vancomycin HCl 750 MG in Sodium Chloride 0.9% 250 ML 250 ML IVPB SCH (04:46)
[2019-09-22] MEDS: Acetaminophen 325 MG TAB PO SCH ×4 (05:11→23:16)
[2019-09-22 05:14] LABS: ALT (SGPT) 9 U/L (8-55); AST (SGOT) 9 U/L (5-34); Albumin 2.5 g/dL (3.4-4.8); Alkaline Phosphatase 155 U/L (40-110); Anion Gap 12 mmol/L (10-20); BUN (Urea Nitrogen) 26 mg/dL (8.4-25.7); Bilirubin, Total 0.4 mg/dL (0.2-1.2); Calc. Creatinine Clearance 56 mL/min (70-130); Calcium 8.5 mg/dL (7.8-10.44); Carbon Dioxide 20 mmol/L (23-31); Chloride 119 mmol/L (98-107); Estimated GFR-MDRD 68; Globulin 2.7 g/dL (2.4-3.5); Glucose 213 mg/dL (83-110); Potassium 4.3 mmol/L (3.5-5.1); Protein, Total 5.2 g/dL (5.8-8.1); Sodium 147 mmol/L (136-145)
[2019-09-22 05:20] LABS: Band 23 % (5-11); Lymphocytes 3 % (21-51); MDiff Complete? YES; Mean Corpuscular HGB CONC 31.8 g/dL (32.0-36.0); Mean Corpuscular Hemoglobin 31.2 pg (27.0-31.0); Mean Corpuscular Volume 98.2 fL (78.0-98.0); Mean Platelet Volume 7.3 fL (7.4-10.4); Monocytes 1 % (0-10); Neutrophil 73 % (42-75); Platelet Count 193 thou/uL (130-400); RBC Distribution Width 14.3 % (11.5-14.5); Red Blood Cell (RBC) Count 3.53 mill/uL (4.70-6.10); White Blood Cell (WBC) Count 13.5 thou/uL (4.8-10.8)
[2019-09-22] MEDS ORDERED: Vancomycin HCl 500 MG in Sodium Chloride 0.9% 100 ML IVPB SCH (07:45)
[2019-09-22] MEDS ORDERED: predniSONE 20 MG TAB PO SCH (08:00)
[2019-09-22] MEDS: Enoxaparin Sodium 30 MG/0.3 ML SYRINGE SC SCH (09:12)
[2019-09-22] MEDS: Clopidogrel Bisulfate 75 MG TAB PO SCH (09:13)
[2019-09-22] MEDS: guaiFENesin ER 600 MG TAB PO SCH ×2 (09:13→21:03)
[2019-09-22] MEDS: Tamsulosin HCl 0.4 MG CAP PO SCH (09:13)
[2019-09-22] MEDS: Escitalopram Oxalate 10 mg Tablet PO SCH (09:13)
[2019-09-22] MEDS: methylPREDNISolone Sod Succ 40 MG VIAL IVP SCH (09:13)
[2019-09-22] MEDS: Metoprolol Tartrate 50 MG TAB PO SCH ×2 (09:13→21:03)
[2019-09-22] MEDS: Dutasteride 0.5 MG CAP PO SCH (09:13)
[2019-09-22] MEDS: Ferrous Sulfate 325 MG TAB PO SCH ×2 (09:13→17:10)
[2019-09-22] MEDS: Ascorbic Acid 500 mg Chewable Tablet PO SCH ×2 (09:13→21:03)
[2019-09-22] MEDS: Polyethylene Glycol 3350 17 GM Packet PO SCH (09:14)
[2019-09-22] MEDS: HumaLOG 300 UNITS/3 ML VIAL SC PRN ×4 (09:14→21:25)
[2019-09-22] MEDS: Nystatin Cream 15 GM TUBE TOP SCH ×2 (09:14→21:04)
--- NOTE | 2019-09-22 09:18 | PDOC.FM ---
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 Otherwise no acute events overnight. - Objective Vital Signs & Weight: Vital Signs (12 hours) Temp Pulse Resp BP Pulse Ox 09/22/19 07:44 97 09/22/19 03:29 97.5 F L 108 H 18 141/86 H 97 09/22/19 00:03 92 L 09/21/19 23:20 96.4 F L 84 19 126/58 L 99 Weight Admit Weight 79.243 kg Weight 79.243 kg I&O: 09/21/19 09/22/19 09/23/19 06:59 06:59 06:59 Intake Total 1300 1920 Output Total 1250 Balance 1300 670 Result Diagrams: 09/23/19 06:26 09/23/19 06:26 Phys Exam - Physical Examination Constitutional: NAD HEENT: moist MMs, sclera anicteric Neck: supple, full ROM Respiratory: no wheezing, clear to auscultation bilateral Cardiovascular: no significant murmur, no rub Gastrointestinal: soft, non-tender Musculoskeletal: no edema, pulses present Neurological: moves all 4 limbs Psychiatric: normal affect Deviation from normal: non verbal (chronic) Skin: normal turgor Deviation from normal: erythema continues to retreat on RLE. wound dressing in place over abscess Dx/Plan (1) Cellulitis and abscess of buttock Code(s): L02.31 - CUTANEOUS ABSCESS OF BUTTOCK; L03.317 - CELLULITIS OF BUTTOCK Status: Acute (2) GEORGES (acute kidney injury) Code(s): N17.9 - ACUTE KIDNEY FAILURE, UNSPECIFIED Status: Acute (3) Sepsis Code(s): A41.9 - SEPSIS, UNSPECIFIED ORGANISM Status: Acute (4) BPH (benign prostatic hyperplasia) Code(s): N40.0 - BENIGN PROSTATIC HYPERPLASIA WITHOUT LOWER URINRY TRACT SYMP Status: Chronic (5) DM2 (diabetes mellitus, type 2) Status: Chronic (6) Dementia Code(s): F03.90 - UNSPECIFIED DEMENTIA WITHOUT BEHAVIORAL DISTURBANCE Status: Chronic Qualifiers: Dementia type: Alzheimer's disease (7) GERD (gastroesophageal reflux disease) Code(s): K21.9 - GASTRO-ESOPHAGEAL REFLUX DISEASE WITHOUT ESOPHAGITIS Status: Chronic (8) HLD (hyperlipidemia) Code(s): E78.5 - HYPERLIPIDEMIA, UNSPECIFIED Status: Chronic (9) HTN (hypertension) Code(s): I10 - ESSENTIAL (PRIMARY) HYPERTENSION Status: Chronic (10) History of CVA (cerebrovascular accident) Code(s): Z86.73 - PRSNL HX OF TIA (TIA), AND CEREB INFRC W/O RESID DEFICITS Status: Chronic - Plan Plan: Patient is an 89M with PMHx of alzheimer's dementia, L-eye blindness, GERD, DM2 , BPH, HLD, HTN, prior CVA with L-sided deficits admitted for sepsis 2/2 pneumonia Sepsis 2/2 Pneumonia: CAP vs Aspiration A- Clinically improving, lungs CTAB. tachypnea resolved, pt remains intermittently tachycardic. Pt does not require O2. Considering hx of dysphagia will cover for both CAP and aspiration pneumonia. BCx and UCx negative P- rocephin, azithro, and flagyl -tylenol prn for fever/pain Cellulitis with R gluteal abscess. A- Improved from last night after starting vanc. wound culture reads ellis sensitive e.coli. I suspect the cellulitis is a staph species however as it only improved after adding vanc P- continue Vanc -f/u Cx GEORGES -resolved PVCs, 2 episodes of Weckenbach A-fairly frequent PVCs seen on monitor technician during evaluation. P-will monitor on telemetry -consider cardiology consult if pt has further arrhythmias DM2 -ACHS accuchecks -ISS HTN -restart home meds as tolerated HLD -continue home meds GERD -continue home meds Hx of CVA with L-sided deficits and dysphagia -continue home meds -speech consulted, appreciate recs -sharepoint application architect consulted, appreciate recs BPH -continue home meds DVT ppx: lovenox Code: DNR confirmed with Daughter, Mark Addendum - Attending - Attending Attestation Date/Time: 09/22/19 1328 I personally evaluated the patient and discussed the management with Dr. Pace I agree with the History, Examination, Assessment and Plan documented above with any addition or exceptions noted below. HD#2 Patient improved. Afebrile. HR improved. RR WNL. Taper antibiotics down to CAP coverage. Continue steroids and breathing treatments for possible pneumonitis. Cellulitis greatly improved. Would continue Vanc for 5 days total for treatment. Remove mejia ABrayMD
[2019-09-22] MEDS: Amlodipine 10 MG TAB PO SCH (10:27)
[2019-09-22] MEDS: Sodium Chloride 0.9% 1,000 ML IV SCH (10:27)
--- NOTE | 2019-09-22 11:13 | RAD ---
RADIOGRAPH CHEST 1 VIEW: DATE: 09/22/2019 HISTORY: 89-year-old male with fever. Sepsis alert. Possible pneumonia. FINDINGS: The study is limited because of very hypoinflated lungs (very shallow inspiration), such that much of the posterior lower lobes are not visualized on this frontal view. A lateral view would be useful. There is no airspace density, pulmonary edema, or pneumothorax. The lateral costophrenic angles are n ot effaced. IMPRESSION: No acute pulmonary findings.
[2019-09-22] MEDS: Azithromycin 500 MG in Sodium Chloride 0.9% 250 ML 250 ML IVPB SCH (11:17)
[2019-09-23] MEDS: cefTRIAXone\\ROCEPHIN 1 GM in Sodium Chloride 0.9% 100 ML IVPB SCH (00:07)
[2019-09-23 03:00] LABS: Glucose POC Confirmation 311 mg/dl (83-110)
[2019-09-23] MEDS: Acetaminophen 325 MG TAB PO SCH ×4 (05:39→23:39)
[2019-09-23] MEDS: Morphine 4 MG/ML VIAL SLOW IVP PRN (06:29)
[2019-09-23 06:41] LABS: Hemoglobin 9.4 g/dL (14.0-18.0); Mean Corpuscular HGB CONC 28.1 g/dL (32.0-36.0); Mean Corpuscular Hemoglobin 28.7 pg (27.0-31.0); Mean Platelet Volume 8.1 fL (7.4-10.4); Platelet Count 214 thou/uL (130-400); RBC Distribution Width 14.7 % (11.5-14.5); Red Blood Cell (RBC) Count 3.28 mill/uL (4.70-6.10); White Blood Cell (WBC) Count 14.9 thou/uL (4.8-10.8)
[2019-09-23 06:47] LABS: #Lymphocytes 0.5 thou/uL (1.20-3.40); #Monocytes 1.1 thou/uL (0.11-0.59); #Neutrophils 13.3 thou/uL (1.40-6.50); %Eosinophils 0.1 % (0.0-10.0); %Lymphocytes 3.2 % (21.0-51.0); %Monocytes 7.7 % (0.0-10.0)
[2019-09-23 06:57] LABS: ALT (SGPT) 9 U/L (8-55); AST (SGOT) 11 U/L (5-34); Albumin 2.6 g/dL (3.4-4.8); Alkaline Phosphatase 146 U/L (40-110); Anion Gap 12 mmol/L (10-20); BUN (Urea Nitrogen) 23 mg/dL (8.4-25.7); Bilirubin, Total 0.3 mg/dL (0.2-1.2); Calc. Creatinine Clearance 53 mL/min (70-130); Calcium 8.7 mg/dL (7.8-10.44); Carbon Dioxide 20 mmol/L (23-31); Chloride 118 mmol/L (98-107); Estimated GFR-MDRD 63; Globulin 2.7 g/dL (2.4-3.5); Glucose 282 mg/dL (83-110); Potassium 3.8 mmol/L (3.5-5.1); Protein, Total 5.3 g/dL (5.8-8.1); Sodium 146 mmol/L (136-145)
[2019-09-23] MEDS ORDERED: Vancomycin HCl 1.25 GM in Sodium Chloride 0.9% 250 ML 250 ML IVPB SCH (08:00)
--- NOTE | 2019-09-23 09:19 | PDOC.FM ---
- Subjective Subjective: resting comfortably, no acute events overnight. - Objective Vital Signs & Weight: Vital Signs (12 hours) Temp Pulse Resp BP Pulse Ox 09/23/19 08:00 98.4 F 105 H 20 133/63 94 L 09/23/19 07:10 92 L 09/23/19 07:09 97 16 92 L 09/23/19 04:00 97.6 F 99 18 160/75 H 99 09/23/19 00:50 90 16 98 09/22/19 23:49 97.6 F 90 18 138/76 98 Weight Admit Weight 79.243 kg Weight 79.243 kg I&O: 09/22/19 09/23/19 09/24/19 06:59 06:59 06:59 Intake Total 1920 1370 Output Total 1250 1300 Balance 670 70 Result Diagrams: 09/23/19 06:26 09/23/19 06:26 Phys Exam - Physical Examination Constitutional: NAD HEENT: moist MMs, sclera anicteric Neck: no JVD, supple Respiratory: no wheezing, clear to auscultation bilateral Cardiovascular: RRR, no significant murmur Gastrointestinal: non-tender, no distention Musculoskeletal: no edema, pulses present Neurological: non-focal, moves all 4 limbs Psychiatric: normal affect Deviation from normal: non verbal Skin: normal turgor, cap refill <2 seconds Dx/Plan (1) Cellulitis and abscess of buttock Code(s): L02.31 - CUTANEOUS ABSCESS OF BUTTOCK; L03.317 - CELLULITIS OF BUTTOCK Status: Acute (2) GEORGES (acute kidney injury) Code(s): N17.9 - ACUTE KIDNEY FAILURE, UNSPECIFIED Status: Acute (3) Sepsis Code(s): A41.9 - SEPSIS, UNSPECIFIED ORGANISM Status: Acute (4) BPH (benign prostatic hyperplasia) Code(s): N40.0 - BENIGN PROSTATIC HYPERPLASIA WITHOUT LOWER URINRY TRACT SYMP Status: Chronic (5) DM2 (diabetes mellitus, type 2) Status: Chronic (6) Dementia Code(s): F03.90 - UNSPECIFIED DEMENTIA WITHOUT BEHAVIORAL DISTURBANCE Status: Chronic Qualifiers: Dementia type: Alzheimer's disease (7) GERD (gastroesophageal reflux disease) Code(s): K21.9 - GASTRO-ESOPHAGEAL REFLUX DISEASE WITHOUT ESOPHAGITIS Status: Chronic (8) HLD (hyperlipidemia) Code(s): E78.5 - HYPERLIPIDEMIA, UNSPECIFIED Status: Chronic (9) HTN (hypertension) Code(s): I10 - ESSENTIAL (PRIMARY) HYPERTENSION Status: Chronic (10) History of CVA (cerebrovascular accident) Code(s): Z86.73 - PRSNL HX OF TIA (TIA), AND CEREB INFRC W/O RESID DEFICITS Status: Chronic - Plan Plan: Patient is an 89M with PMHx of alzheimer's dementia, L-eye blindness, GERD, DM2 , BPH, HLD, HTN, prior CVA with L-sided deficits admitted for sepsis 2/2 pneumonia Sepsis 2/2 CAP A- Clinically improving, lungs CTAB. Pt s/p treatment with cefepime and flagyl. BCx and UCx negative P- rocephin, azithro -plan to switch to PO -tylenol prn for fever/pain Cellulitis with R gluteal abscess. A- Continued improvement. wound culture reads ellis sensitive e.coli. I suspect the cellulitis is a staph species however as it only improved after adding vanc P- Will switch to Bactrim and monitor improvement GEORGES -resolved PVCs, 2 episodes of Weckenbach - 2 episodes on 09/20, none since then. DM2 -ACHS accuchecks -ISS, home 70/30 HTN -restart home meds as tolerated HLD -continue home meds GERD -continue home meds Hx of CVA with L-sided deficits and dysphagia -continue home meds -speech consulted, appreciate recs -poultry farmworker consulted, appreciate recs BPH -continue home meds DVT ppx: lovenox Code: DNR confirmed with Daughter, Mark
[2019-09-23] MEDS: Ferrous Sulfate 325 MG TAB PO SCH ×2 (10:04→17:18)
[2019-09-23] MEDS: Clopidogrel Bisulfate 75 MG TAB PO SCH (10:05)
[2019-09-23] MEDS: Ascorbic Acid 500 mg Chewable Tablet PO SCH ×2 (10:06→20:53)
[2019-09-23] MEDS: Tamsulosin HCl 0.4 MG CAP PO SCH (10:06)
[2019-09-23] MEDS: Metoprolol Tartrate 50 MG TAB PO SCH ×2 (10:06→21:02)
[2019-09-23] MEDS: guaiFENesin ER 600 MG TAB PO SCH ×2 (10:06→20:53)
[2019-09-23] MEDS: Amlodipine 10 MG TAB PO SCH (10:06)
[2019-09-23] MEDS: Polyethylene Glycol 3350 17 GM Packet PO SCH (10:07)
[2019-09-23] MEDS: methylPREDNISolone Sod Succ 40 MG VIAL IVP SCH (10:08)
[2019-09-23] MEDS: Azithromycin 500 MG in Sodium Chloride 0.9% 250 ML 250 ML IVPB SCH (10:09)
[2019-09-23] MEDS: Nystatin Cream 15 GM TUBE TOP SCH ×2 (10:09→21:02)
[2019-09-23] MEDS: HumuLIN 70/30 (300 UNITS/3 ML VIAL) SC SCH ×2 (10:10→21:19)
[2019-09-23] MEDS: Enoxaparin Sodium 30 MG/0.3 ML SYRINGE SC SCH (10:13)
[2019-09-23] MEDS: Escitalopram Oxalate 10 mg Tablet PO SCH (10:14)
[2019-09-23] MEDS: Dutasteride 0.5 MG CAP PO SCH (10:14)
[2019-09-23] MEDS ORDERED: Ibuprofen 600 MG TAB PO PRN (11:06)
[2019-09-23] MEDS: Ketorolac Tromethamine 30 MG/ML VIAL IVP PRN ×2 (12:47→21:04)
[2019-09-23] MEDS: HumaLOG 300 UNITS/3 ML VIAL SC PRN ×3 (12:55→21:20)
--- NOTE | 2019-09-23 13:10 | PRG ---
DATE OF SERVICE: 09/23/[address] Please see note [address] Dr. Kameron Pace, for which I agree. The patient was seen, evaluated, discussed, and examined with the residents by bedside. He is a [facility] patient who is here for a right upper inner thigh and almost buttocks area abscess. It is unclear if it was incised and drained in the emergency room or in the [facility], but had a cellulitis started improving on Rocephin, vancomycin, and azithromycin. Some question if he had community-acquired pneumonia, but it sounds like. Repeat x-ray really did not show that. Diabetes has been fairly well controlled while he is here. He is responding to antibiotic therapy. I do not think we need to incise and drain this, but we will monitor closely. If any worsening, we will need to recommend warm soaks as well, but I think the wound care is also involved. Job ID: [id number]
--- NOTE | 2019-09-23 14:04 | CON ---
DATE OF CONSULTATION: 09/23/2019 CONSULTING PHYSICIAN: Dr. Pace. REASON FOR CONSULTATION: Right upper inner thigh abscess. HISTORY OF PRESENT ILLNESS: The patient is an 89-year-old white male with advanced dementia. He is apparently nonverbal. He has a history of multiple medical problems including history of stroke, left eye blindness, coronary artery disease, diabetes, hypertension, anxiety, depression, gastroesophageal reflux disease. PAST SURGICAL HISTORY: May be incomplete, but includes at least cholecystectomy, hernia repair, and repair of a left hip fracture in July of this year per Dr. Aguilar. MEDICATIONS: Currently include 1. Amlodipine. 2. Azithromycin. 3. Ceftriaxone. 4. Plavix. 5. Lovenox. 6. Lexapro. 7. Iron sulfate. 8. Humalog. 9. Humulin. 10. Ketorolac. 11. Losartan. 12. Methylprednisolone. 13. Metoprolol. 14. Morphine. 15. Pantoprazole. 16. Seroquel. 17. Flomax. 18. Vancomycin. ALLERGIES: AMBIEN. PERSONAL AND SOCIAL HISTORY: He lives in a senior care. He gets around using a wheelchair. His daughter is present at bedside. As mentioned, he is nonverbal. PHYSICAL EXAMINATION: VITAL SIGNS: He is afebrile with temperature 98.4, pulse is 108, blood pressure is 133/63. GENERAL: He is an elderly white male. He clearly has significant anxiety and a very low pain threshold. He screams out whenever he is touched or manipulated. In order to examine the abscess on the upper inner thigh, when rolled to the side, this caused him distress. HEAD, EYES, EARS, NOSE, AND THROAT: Unremarkable except for his left eye patch. NECK: Supple. LUNGS: Clear to auscultation anteriorly. CARDIAC: Appears to be regular rate and rhythm. ABDOMEN: Soft, nontender, nondistended. EXTREMITIES: He has an obvious abscess with an area of induration on the upper inner right thigh just inferior to his gluteal fold. There is a punctate opening measuring about 4 mm. This is just big enough for the head of a Q-tip to fit through. There is a brownish fluid that is expressed from this and there is clearly a significant undermined abscess underneath this. There is also an area of induration with marked tenderness extending distally on the leg. LABORATORY DATA: White blood cell count when he presented was 18.8 today. It is still 14.9 in spite of antibiotics. His hemoglobin is 9.4, platelet count is 214. Chemistry panel reveals his sodium and chloride are high and his CO2 is low. I suspect he is on normal saline for IV fluid. His cultures reveal E coli. ASSESSMENT: The patient has an abscess that is significantly undermined on his upper inner left thigh. Under a lot of circumstances, this can be performed at bedside. I do not think this would be appropriate in this patient. I would therefore recommend doing this in the operating room. Unfortunately, he is not n.p.o., he has just eaten a large amount of food. I will therefore plan to do this in the morning. He should be n.p.o. after midnight. I explained this to his daughter and I explained that I will open the area as wide as the infection is to get it under control. Although he is on Lovenox and Plavix, this should be of no significance in regard to a superficial infection like this. Job ID: [id number]
[2019-09-23] MEDS ORDERED: Morphine 4 MG/ML VIAL SLOW IVP SCH (17:00)
[2019-09-23] MEDS: Losartan 25 MG TAB PO SCH (21:02)
[2019-09-24] MEDS: cefTRIAXone\\ROCEPHIN 1 GM in Sodium Chloride 0.9% 100 ML IVPB SCH (00:34)
[2019-09-24] MEDS: Morphine 4 MG/ML VIAL SLOW IVP PRN ×2 (04:10→12:27)
[2019-09-24] MEDS: Acetaminophen 325 MG TAB PO SCH ×3 (05:24→16:39)
[2019-09-24 06:07] LABS: ALT (SGPT) 13 U/L (8-55); AST (SGOT) 18 U/L (5-34); Albumin 2.5 g/dL (3.4-4.8); Alkaline Phosphatase 160 U/L (40-110); Anion Gap 14 mmol/L (10-20); BUN (Urea Nitrogen) 22 mg/dL (8.4-25.7); Bilirubin, Total 0.3 mg/dL (0.2-1.2); Calc. Creatinine Clearance 63 mL/min (70-130); Calcium 8.5 mg/dL (7.8-10.44); Carbon Dioxide 23 mmol/L (23-31); Chloride 115 mmol/L (98-107); Estimated GFR-MDRD 78; Globulin 2.9 g/dL (2.4-3.5); Glucose 197 mg/dL (83-110); Potassium 4.5 mmol/L (3.5-5.1); Protein, Total 5.4 g/dL (5.8-8.1); Sodium 147 mmol/L (136-145)
[2019-09-24] MEDS ORDERED: Fentanyl 100 MCG/2 ML VIAL ONE (07:20)
--- NOTE | 2019-09-24 07:31 | PDOC.FM ---
- Subjective Subjective: Resting comfortably, pulled at IVs yesterday. No acute events overnight. - Objective Vital Signs & Weight: Vital Signs (12 hours) Temp Pulse Resp BP BP Pulse Ox 09/24/19 04:00 97.9 F 85 18 161/74 H 95 09/23/19 20:00 98 F 94 18 154/70 H 92 L Weight Admit Weight 79.243 kg Weight 79.243 kg I&O: 09/23/19 09/24/19 09/25/19 06:59 06:59 06:59 Intake Total 1370 560 Output Total 1900 Balance -530 560 Result Diagrams: 09/23/19 06:26 09/24/19 05:44 Phys Exam - Physical Examination Constitutional: NAD HEENT: moist MMs, sclera anicteric Neck: no JVD, supple Respiratory: no wheezing, clear to auscultation bilateral Cardiovascular: RRR, no significant murmur Gastrointestinal: non-tender, no distention Musculoskeletal: no edema, pulses present advanced dementia, non verbal Psychiatric: normal affect Skin: normal turgor Deviation from normal: erythema continues to retreat RLE Dx/Plan (1) Cellulitis and abscess of buttock Code(s): L02.31 - CUTANEOUS ABSCESS OF BUTTOCK; L03.317 - CELLULITIS OF BUTTOCK Status: Acute (2) GEORGES (acute kidney injury) Code(s): N17.9 - ACUTE KIDNEY FAILURE, UNSPECIFIED Status: Acute (3) Sepsis Code(s): A41.9 - SEPSIS, UNSPECIFIED ORGANISM Status: Acute (4) BPH (benign prostatic hyperplasia) Code(s): N40.0 - BENIGN PROSTATIC HYPERPLASIA WITHOUT LOWER URINRY TRACT SYMP Status: Chronic (5) DM2 (diabetes mellitus, type 2) Status: Chronic (6) Dementia Code(s): F03.90 - UNSPECIFIED DEMENTIA WITHOUT BEHAVIORAL DISTURBANCE Status: Chronic Qualifiers: Dementia type: Alzheimer's disease (7) GERD (gastroesophageal reflux disease) Code(s): K21.9 - GASTRO-ESOPHAGEAL REFLUX DISEASE WITHOUT ESOPHAGITIS Status: Chronic (8) HLD (hyperlipidemia) Code(s): E78.5 - HYPERLIPIDEMIA, UNSPECIFIED Status: Chronic (9) HTN (hypertension) Code(s): I10 - ESSENTIAL (PRIMARY) HYPERTENSION Status: Chronic (10) History of CVA (cerebrovascular accident) Code(s): Z86.73 - PRSNL HX OF TIA (TIA), AND CEREB INFRC W/O RESID DEFICITS Status: Chronic - Plan Plan: Patient is an 89M with PMHx of alzheimer's dementia, L-eye blindness, GERD, DM2 , BPH, HLD, HTN, prior CVA with L-sided deficits admitted for sepsis 2/2 pneumonia Sepsis 2/2 CAP A- improved, lungs CTAB. last CXR wnl P- rocephintrinhithro, will complete 5 day course -tylenol prn for fever/pain Cellulitis with R gluteal abscess. A- Continued improvement. Surg consulted (recs appreciated) plans for further debridement. wound culture reads ellis sensitive e.coli. I suspect the cellulitis is a staph species however as it only improved after adding vanc P- plans for 2nd I&D in [place] today -Will switch to Bactrim and monitor improvement GEORGES -resolved PVCs, 2 episodes of Weckenbach - 2 episodes on 09/20, none since then. DM2 -ACHS accuchecks -ISS, home 70/30 HTN -restart home meds as tolerated HLD -continue home meds GERD -continue home meds Hx of CVA with L-sided deficits and dysphagia -continue home meds -speech consulted, appreciate recs -automotive general sales manager consulted, appreciate recs BPH -continue home meds DVT ppx: clopidogrel (home med) Code: DNR confirmed with Daughter, Mark
[2019-09-24] MEDS ORDERED: Lidocaine 1% w/Epinephrine 1:100K 20 ML VIAL ONE (08:14)
[2019-09-24] MEDS ORDERED: Bupivacaine PF 0.5% 30 ML VIAL ONE (08:14)
[2019-09-24] MEDS ORDERED: Ondansetron HCl/PF 4 MG/2 ML Vial IVP PRN (08:41)
[2019-09-24] MEDS ORDERED: SUGAMMADEX SODIUM 200 MG/2 ML VIAL ONE (08:58)
[2019-09-24] MEDS: Azithromycin 500 MG in Sodium Chloride 0.9% 250 ML 250 ML IVPB SCH (09:56)
[2019-09-24] MEDS: Nystatin Cream 15 GM TUBE TOP SCH ×2 (09:57→20:37)
[2019-09-24] MEDS: methylPREDNISolone Sod Succ 40 MG VIAL IVP SCH (09:57)
[2019-09-24] MEDS: Polyethylene Glycol 3350 17 GM Packet PO SCH (10:08)
[2019-09-24] MEDS: Sulfameth/Trimethoprim DS 800-160mg TAB PO SCH ×2 (10:09→20:36)
[2019-09-24] MEDS: Ascorbic Acid 500 mg Chewable Tablet PO SCH ×2 (10:09→20:37)
[2019-09-24] MEDS: Metoprolol Tartrate 50 MG TAB PO SCH ×2 (10:09→20:36)
[2019-09-24] MEDS: Escitalopram Oxalate 10 mg Tablet PO SCH (10:09)
[2019-09-24] MEDS: Ferrous Sulfate 325 MG TAB PO SCH ×2 (10:09→16:39)
[2019-09-24] MEDS: Tamsulosin HCl 0.4 MG CAP PO SCH (10:09)
[2019-09-24] MEDS: Amlodipine 10 MG TAB PO SCH (10:10)
[2019-09-24] MEDS: HumuLIN 70/30 (300 UNITS/3 ML VIAL) SC SCH ×2 (10:10→20:44)
[2019-09-24] MEDS: Clopidogrel Bisulfate 75 MG TAB PO SCH (10:10)
[2019-09-24] MEDS: guaiFENesin ER 600 MG TAB PO SCH ×2 (10:10→20:36)
[2019-09-24] MEDS: Dutasteride 0.5 MG CAP PO SCH (10:11)
[2019-09-24] MEDS ORDERED: PROPOFOL 200 MG/20 ML VIAL ONE (11:00)
[2019-09-24] MEDS ORDERED: Lidocaine 1% PF 5 ML VIAL ONE (11:00)
[2019-09-24] MEDS ORDERED: Ondansetron PF 4 MG/2 ML Vial ONE (11:00)
[2019-09-24] MEDS ORDERED: Dexamethasone 20 MG/5 ML VIAL ONE (11:00)
[2019-09-24] MEDS ORDERED: Rocuronium Bromide 10 MG/ML (10ML VIAL) ONE (11:00)
--- NOTE | 2019-09-24 12:22 | PRG ---
DATE OF SERVICE: The patient is seen, evaluated, discussed and examined with the residents by bedside status post incision and drainage of the right buttocks abscess. According to daughters in the room, he seems more alert and with it than usual as he does have pretty significant dementia. Still coughing a little bit from the pneumonia, but it sounds like the cellulitis maybe was giving him quite a bit of pain now, has improved. Has woken up fine after anesthesia. Otherwise, no other change on exam. Chest slightly coarse. So plan is to continue same antibiotics. Continue wound care per Surgery and we will follow him supportively and clinically and see how he does in the next couple of days. Hopefully, will be ready for discharge within the next 48 hours. Job ID: [id number]
[2019-09-24 13:35] LABS: Band 24 % (5-11); Hemoglobin 12.3 g/dL (14.0-18.0); Lymphocytes 3 % (21-51); MDiff Complete? YES; Mean Corpuscular HGB CONC 31.3 g/dL (32.0-36.0); Mean Corpuscular Hemoglobin 30.4 pg (27.0-31.0); Mean Corpuscular Volume 97.2 fL (78.0-98.0); Mean Platelet Volume 7.4 fL (7.4-10.4); Monocytes 5 % (0-10); Neutrophil 66 % (42-75); Platelet Count 254 thou/uL (130-400); Platelet Morphology Comment Appears Adequate; Polychromasia SLIGHT = 2-3 cells (100X) (0-2/hpf); RBC Distribution Width 14.7 % (11.5-14.5); Reactive Lymphocytes 2 % (0-10); Red Blood Cell (RBC) Count 4.02 mill/uL (4.70-6.10); White Blood Cell (WBC) Count 14.7 thou/uL (4.8-10.8)
[2019-09-24] MEDS: HumaLOG 300 UNITS/3 ML VIAL SC PRN ×2 (17:06→20:45)
[2019-09-24] MEDS: Losartan 25 MG TAB PO SCH (20:40)
[2019-09-25] MEDS: Acetaminophen 325 MG TAB PO SCH ×5 (00:33→22:10)
[2019-09-25] MEDS: cefTRIAXone\\ROCEPHIN 1 GM in Sodium Chloride 0.9% 100 ML IVPB SCH (00:36)
[2019-09-25] MEDS: Ketorolac Tromethamine 30 MG/ML VIAL IVP PRN ×2 (00:53→12:11)
[2019-09-25] MEDS: HumaLOG 300 UNITS/3 ML VIAL SC PRN ×4 (04:47→22:14)
[2019-09-25] MEDS: Morphine 4 MG/ML VIAL SLOW IVP PRN ×2 (05:07→09:58)
[2019-09-25 06:29] LABS: Hemoglobin 10.7 g/dL (14.0-18.0); Mean Corpuscular HGB CONC 31.7 g/dL (32.0-36.0); Mean Platelet Volume 7.4 fL (7.4-10.4); Platelet Count 240 thou/uL (130-400); RBC Distribution Width 14.7 % (11.5-14.5); Red Blood Cell (RBC) Count 3.45 mill/uL (4.70-6.10); White Blood Cell (WBC) Count 10.5 thou/uL (4.8-10.8)
[2019-09-25 07:12] LABS: ALT (SGPT) 12 U/L (8-55); AST (SGOT) 11 U/L (5-34); Albumin 2.4 g/dL (3.4-4.8); Alkaline Phosphatase 135 U/L (40-110); Anion Gap 12 mmol/L (10-20); BUN (Urea Nitrogen) 35 mg/dL (8.4-25.7); Bilirubin, Total 0.2 mg/dL (0.2-1.2); Calc. Creatinine Clearance 43 mL/min (70-130); Calcium 8.5 mg/dL (7.8-10.44); Carbon Dioxide 26 mmol/L (23-31); Chloride 111 mmol/L (98-107); Estimated GFR-MDRD 50; Globulin 2.8 g/dL (2.4-3.5); Glucose 293 mg/dL (83-110); Potassium 4.5 mmol/L (3.5-5.1); Protein, Total 5.2 g/dL (5.8-8.1); Sodium 144 mmol/L (136-145)
[2019-09-25 08:17] LABS: Band 11 % (5-11); Lymphocytes 1 % (21-51); MDiff Complete? YES; Monocytes 5 % (0-10); Neutrophil 83 % (42-75); Platelet Morphology Comment Appears Adequate; Polychromasia SLIGHT = 2-3 cells (100X) (0-2/hpf)
[2019-09-25] MEDS: Ferrous Sulfate 325 MG TAB PO SCH ×2 (08:35→17:39)
[2019-09-25] MEDS: Escitalopram Oxalate 10 mg Tablet PO SCH (08:35)
[2019-09-25] MEDS: Ascorbic Acid 500 mg Chewable Tablet PO SCH ×2 (08:35→22:07)
[2019-09-25] MEDS: Metoprolol Tartrate 50 MG TAB PO SCH ×2 (08:35→22:06)
[2019-09-25] MEDS: Tamsulosin HCl 0.4 MG CAP PO SCH (08:35)
[2019-09-25] MEDS: Amlodipine 10 MG TAB PO SCH (08:35)
[2019-09-25] MEDS: Dutasteride 0.5 MG CAP PO SCH (08:35)
[2019-09-25] MEDS: Sulfameth/Trimethoprim DS 800-160mg TAB PO SCH ×2 (08:35→22:06)
[2019-09-25] MEDS: Clopidogrel Bisulfate 75 MG TAB PO SCH (08:35)
[2019-09-25] MEDS: guaiFENesin ER 600 MG TAB PO SCH ×2 (08:35→22:06)
[2019-09-25] MEDS: methylPREDNISolone Sod Succ 40 MG VIAL IVP SCH (08:36)
[2019-09-25] MEDS: Nystatin Cream 15 GM TUBE TOP SCH ×2 (08:36→22:08)
[2019-09-25] MEDS: Polyethylene Glycol 3350 17 GM Packet PO SCH (08:36)
[2019-09-25] MEDS: HumuLIN 70/30 (300 UNITS/3 ML VIAL) SC SCH ×2 (08:53→22:14)
[2019-09-25] MEDS ORDERED: HumuLIN 70/30 (300 UNITS/3 ML VIAL) SC SCH (09:15)
--- NOTE | 2019-09-25 09:22 | PDOC.FM ---
- Subjective Subjective: resting comfortably, no events overnight. ROS unobtainable, pt chronically non verbal - Objective Vital Signs & Weight: Vital Signs (12 hours) Temp Pulse Resp BP BP BP Pulse Ox 09/25/19 08:35 80 151/71 H 09/25/19 07:26 97.5 F L 80 20 151/71 H 99 09/25/19 07:17 85 14 98 09/25/19 04:30 97.9 F 75 18 149/78 H 94 L Weight Admit Weight 79.243 kg Weight 79.243 kg I&O: 09/24/19 09/25/19 09/26/19 06:59 06:59 06:59 Intake Total 560 350 Balance 560 350 Result Diagrams: 09/25/19 05:44 09/25/19 05:44 Phys Exam - Physical Examination Constitutional: NAD HEENT: moist MMs, sclera anicteric Neck: no JVD, supple Respiratory: no wheezing, clear to auscultation bilateral Cardiovascular: RRR, no significant murmur Gastrointestinal: soft, non-tender Musculoskeletal: pulses present Neurological: moves all 4 limbs nonverbal, chronic Psychiatric: normal affect Skin: no rash, normal turgor Dx/Plan (1) Cellulitis and abscess of buttock Code(s): L02.31 - CUTANEOUS ABSCESS OF BUTTOCK; L03.317 - CELLULITIS OF BUTTOCK Status: Acute (2) GEORGES (acute kidney injury) Code(s): N17.9 - ACUTE KIDNEY FAILURE, UNSPECIFIED Status: Acute (3) Sepsis Code(s): A41.9 - SEPSIS, UNSPECIFIED ORGANISM Status: Acute (4) BPH (benign prostatic hyperplasia) Code(s): N40.0 - BENIGN PROSTATIC HYPERPLASIA WITHOUT LOWER URINRY TRACT SYMP Status: Chronic (5) DM2 (diabetes mellitus, type 2) Status: Chronic (6) Dementia Code(s): F03.90 - UNSPECIFIED DEMENTIA WITHOUT BEHAVIORAL DISTURBANCE Status: Chronic Qualifiers: Dementia type: Alzheimer's disease (7) GERD (gastroesophageal reflux disease) Code(s): K21.9 - GASTRO-ESOPHAGEAL REFLUX DISEASE WITHOUT ESOPHAGITIS Status: Chronic (8) HLD (hyperlipidemia) Code(s): E78.5 - HYPERLIPIDEMIA, UNSPECIFIED Status: Chronic (9) HTN (hypertension) Code(s): I10 - ESSENTIAL (PRIMARY) HYPERTENSION Status: Chronic (10) History of CVA (cerebrovascular accident) Code(s): Z86.73 - PRSNL HX OF TIA (TIA), AND CEREB INFRC W/O RESID DEFICITS Status: Chronic - Plan Plan: Patient is an 89M with PMHx of alzheimer's dementia, L-eye blindness, GERD, DM2 , BPH, HLD, HTN, prior CVA with L-sided deficits admitted for sepsis 2/2 cellulitis, and CAP Sepsis 2/2 CAP A- doing well, CRP decreased to 2.5. repeat procal pending. lungs CTAB. last CXR wnl P- rocephin, azithro, will complete 5 day course -tylenol prn for fever/pain Cellulitis with R gluteal abscess. A- Continued improvement. Pt is POD 1 from debridement. wound culture reads ellis sensitive e.coli. I suspect the cellulitis is a staph species however as it only improved after adding vanc P- continue Bactrim GEORGES A- was resolved, bumped overnight cr 1.3 P- will monitor, encourage PO hydration PVCs, 2 episodes of Weckenbach - 2 episodes on 09/20, none since then. DM2 -[facility]HS accuchecks -ISS, home 70/30, will increase home regimen as needed HTN -restart home meds as tolerated HLD -continue home meds GERD -continue home meds Hx of CVA with L-sided deficits and dysphagia -continue home meds -speech consulted, appreciate recs -airport clerk consulted, appreciate recs BPH -continue home meds DVT ppx: clopidogrel (home med) Code: DNR confirmed with Daughter, Mark Addendum - Attending - Attending Attestation Date/Time: 09/25/19 1620 I personally evaluated the patient and discussed the management with Dr. Pace. I agree with the History, Examination, Assessment and Plan documented above with any addition or exceptions noted below. Incision with dressing, dry. Mildly TTP. Continue bactrim, increased creatinine could be a drug effect. Hopeful d/c tomorrow.
[2019-09-25] MEDS: Azithromycin 500 MG in Sodium Chloride 0.9% 250 ML 250 ML IVPB SCH (10:42)
--- NOTE | 2019-09-25 13:38 | PRG ---
DATE OF SERVICE: 09/25/2019 Mr. Beard is postoperative day #1 from radical resection of necrotic/gangrenous tissue from a right inguinal crease abscess. He is nonverbal and of course has no complaints. I am told by nursing staff that he has been stable since his surgery. He is alert and somewhat interactive. He has been afebrile. Wound Care Team has placed a wound VAC today at my request. On physical examination, he is afebrile, pulse is 80, and blood pressure 150/70. Right groin is inspected. The wound VAC is intact and of course I can see the wound. Cultures reveal only E coli. I am not certain if an anaerobic culture was ordered, but there was certainly substantial anaerobes within the wound at the time of the debridement. He appears to be stable from my standpoint. He will require ongoing wound care. He can have this performed at his [facility]. I would typically like to see him back in 2 to 3 weeks to check for healing of this area. This was communicated to his daughter, who was in the room when I was examining him. Job ID: [id number]
--- NOTE | 2019-09-25 14:37 | OP ---
DATE OF PROCEDURE: 09/24/2019 PREOPERATIVE DIAGNOSIS: Right upper thigh/lower buttock abscess. 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 OPERATIONS PERFORMED: Incision and drainage with extensive radical debridement of all nonviable tissue in the right groin crease. ANESTHESIA: General endotracheal. INDICATIONS FOR PROCEDURE: The patient is an 89-year-old, chronically-ill, and demented white male. He had presented to the hospital with evidence of sepsis and was recognized to have an abscess. When I saw him yesterday, he had just eaten a full meal, and he was, therefore, scheduled for surgery today. He had a punctate opening that was allowing decompression and drainage. DESCRIPTION OF OPERATION: Informed consent was obtained. The patient was taken to the operating room, where general anesthesia was obtained with the patient in supine position. He was rolled over into lateral decubitus position. The area of the abscess was prepped with Betadine and draped in sterile fashion. Local anesthetic was infiltrated using a mixture of 0.25% Marcaine and 1% lidocaine with epinephrine. The abscess cavity was probed with hemostat, and the skin overlying the opening was incised. From the opening, this primarily extended anteriorly up into the inguinal crease. When completed, the incision length was about 6 or 7 cm. Underneath was some foul-smelling, grayish, necrotic tissue and purulent material. This was all sharply debrided back to viable tissue. All undermining was debrided as well. The wound was then extensively scrubbed with peroxide and packed with peroxide moistened gauze, and dry gauze dress was placed externally. These findings were consistent with a typical of necrotizing fasciitis. He will require ongoing wound care for a few weeks for this to heal. Job ID: [id number]
[2019-09-25] MEDS: traMADol HCl 50 MG TAB PO PRN (17:38)
[2019-09-25] MEDS: Losartan 25 MG TAB PO SCH (22:07)
[2019-09-26] MEDS: Acetaminophen 325 MG TAB PO SCH ×3 (05:23→16:49)
[2019-09-26] MEDS: HumaLOG 300 UNITS/3 ML VIAL SC PRN (06:15)
[2019-09-26] MEDS: Dutasteride 0.5 MG CAP PO SCH (08:24)
[2019-09-26] MEDS: Ascorbic Acid 500 mg Chewable Tablet PO SCH ×2 (08:24→21:21)
[2019-09-26] MEDS: Tamsulosin HCl 0.4 MG CAP PO SCH (08:24)
[2019-09-26] MEDS: Ferrous Sulfate 325 MG TAB PO SCH ×2 (08:24→16:49)
[2019-09-26] MEDS: guaiFENesin ER 600 MG TAB PO SCH ×2 (08:24→21:21)
[2019-09-26] MEDS: Nystatin Cream 15 GM TUBE TOP SCH ×2 (08:25→21:22)
[2019-09-26] MEDS: Escitalopram Oxalate 10 mg Tablet PO SCH (08:25)
[2019-09-26] MEDS: Amlodipine 10 MG TAB PO SCH (08:25)
[2019-09-26] MEDS: Polyethylene Glycol 3350 17 GM Packet PO SCH (08:25)
[2019-09-26] MEDS: Clopidogrel Bisulfate 75 MG TAB PO SCH (08:25)
[2019-09-26] MEDS: Metoprolol Tartrate 50 MG TAB PO SCH ×2 (08:25→21:21)
[2019-09-26] MEDS: Sulfameth/Trimethoprim DS 800-160mg TAB PO SCH ×2 (08:25→21:21)
[2019-09-26] MEDS: HumuLIN 70/30 (300 UNITS/3 ML VIAL) SC SCH (08:44)
--- NOTE | 2019-09-26 08:44 | PDOC.FM ---
- Subjective Subjective: doing well, enjoying breakfast, no events overnight. CM is verifying NH can accomodate wound vac. ROS unobtainable, pt is non verbal at baseline - Objective Vital Signs & Weight: Vital Signs (12 hours) Temp Pulse Resp BP BP BP Pulse Ox 09/26/19 08:25 74 150/83 H 09/26/19 08:00 96 09/26/19 07:34 94 L 09/26/19 07:31 74 14 94 L 09/26/19 07:27 97.6 F 83 17 150/83 H 96 09/26/19 00:52 85 12 92 L 09/25/19 22:00 133/69 Weight Admit Weight 79.243 kg Weight 79.243 kg I&O: 09/25/19 09/26/19 09/27/19 06:59 06:59 06:59 Intake Total 350 970 Balance 350 970 Result Diagrams: 09/25/19 05:44 09/26/19 09:10 Phys Exam - Physical Examination Constitutional: NAD HEENT: moist MMs, sclera anicteric Neck: supple, full ROM Respiratory: no wheezing, clear to auscultation bilateral Cardiovascular: no significant murmur, no rub Gastrointestinal: soft, non-tender Musculoskeletal: no edema, pulses present Neurological: moves all 4 limbs non verbal Psychiatric: normal affect Skin: no rash, normal turgor Dx/Plan (1) Cellulitis and abscess of buttock Code(s): L02.31 - CUTANEOUS ABSCESS OF BUTTOCK; L03.317 - CELLULITIS OF BUTTOCK Status: Acute (2) GEORGES (acute kidney injury) Code(s): N17.9 - ACUTE KIDNEY FAILURE, UNSPECIFIED Status: Acute (3) Sepsis Code(s): A41.9 - SEPSIS, UNSPECIFIED ORGANISM Status: Acute (4) BPH (benign prostatic hyperplasia) Code(s): N40.0 - BENIGN PROSTATIC HYPERPLASIA WITHOUT LOWER URINRY TRACT SYMP Status: Chronic (5) DM2 (diabetes mellitus, type 2) Status: Chronic (6) Dementia Code(s): F03.90 - UNSPECIFIED DEMENTIA WITHOUT BEHAVIORAL DISTURBANCE Status: Chronic Qualifiers: Dementia type: Alzheimer's disease (7) GERD (gastroesophageal reflux disease) Code(s): K21.9 - GASTRO-ESOPHAGEAL REFLUX DISEASE WITHOUT ESOPHAGITIS Status: Chronic (8) HLD (hyperlipidemia) Code(s): E78.5 - HYPERLIPIDEMIA, UNSPECIFIED Status: Chronic (9) HTN (hypertension) Code(s): I10 - ESSENTIAL (PRIMARY) HYPERTENSION Status: Chronic (10) History of CVA (cerebrovascular accident) Code(s): Z86.73 - PRSNL HX OF TIA (TIA), AND CEREB INFRC W/O RESID DEFICITS Status: Chronic - Plan Plan: Patient is an 89M with PMHx of alzheimer's dementia, L-eye blindness, GERD, DM2 , BPH, HLD, HTN, prior CVA with L-sided deficits admitted for sepsis 2/2 cellulitis, and CAP Cellulitis with R gluteal abscess. A- Continued improvement. Pt is POD 2 from debridement. wound culture reads ellis sensitive e.coli. I suspect the cellulitis is a staph species however as it only improved after adding vanc P- continue Bactrim -pt has wound vac in place and is medically ready for DC -CM to confirm NH can accomodate wound vac -f/u outpt with surg in 2-3 weeks GEORGES A- possibly 2/2 med s/e. BMP pending this AM P- will monitor, encourage PO hydration Sepsis 2/2 CAP -resolved. Pt completed 5 day course ABX PVCs, 2 episodes of Weckenbach - 2 episodes on 09/20, none since then. DM2 -[facility] accuchecks -ISS, home 70/30, will increase home regimen as needed HTN -restart home meds as tolerated HLD -continue home meds GERD -continue home meds Hx of CVA with L-sided deficits and dysphagia -continue home meds -speech consulted, appreciate recs -tax accountant consulted, appreciate recs BPH -continue home meds DVT ppx: clopidogrel (home med) Code: DNR confirmed with Daughter, Mark Addendum - Attending - Attending Attestation Date/Time: 09/26/19 1122 I personally evaluated the patient and discussed the management with Dr. Pace. I agree with the History, Examination, Assessment and Plan documented above with any addition or exceptions noted below.
[2019-09-26 09:35] LABS: Anion Gap 11 mmol/L (10-20); BUN (Urea Nitrogen) 35 mg/dL (8.4-25.7); Calc. Creatinine Clearance 45 mL/min (70-130); Carbon Dioxide 28 mmol/L (23-31); Chloride 109 mmol/L (98-107); Estimated GFR-MDRD 53; Sodium 144 mmol/L (136-145)
[2019-09-26 09:36] LABS: ALT (SGPT) 13 U/L (8-55); AST (SGOT) 14 U/L (5-34); Albumin 2.6 g/dL (3.4-4.8); Alkaline Phosphatase 131 U/L (40-110); Bilirubin, Total 0.3 mg/dL (0.2-1.2); Calcium 8.5 mg/dL (7.8-10.44); Glucose 95 mg/dL (83-110); Protein, Total 5.6 g/dL (5.8-8.1)
[2019-09-26] MEDS: methylPREDNISolone Sod Succ 40 MG VIAL IVP SCH (11:56)
--- NOTE | 2019-09-26 15:30 | PRG ---
DATE OF SERVICE: 09/26/2019 SUBJECTIVE: He is postoperative day #2 from incision and drainage of an area of necrotizing fasciitis in his right inguinal crease. He is resting comfortably in his bed. His daughter is present at bedside and has no complaints still. He tells me he is acting as always in no discomfort and tolerating his diet and overall doing well. OBJECTIVE: VITAL SIGNS: On examination, he is afebrile. Vital signs are within normal limits. LABORATORY DATA: He has had no CBC today. His chemistries show some minimal abnormalities. ASSESSMENT: The patient is doing well following radical debridement of his right groin wound. He is cleared to be discharged to shelter at any time. He has a wound VAC in place. He will need continued wound VAC therapy because this is going to take a few weeks to heal. Since he is still in the hospital, then I will try to see the wound with wound care team tomorrow with dressing change. Again, he can be discharged from a surgical standpoint at any point. Job ID: [id number]
[2019-09-26] MEDS ORDERED: HumuLIN 70/30 (300 UNITS/3 ML VIAL) SC SCH (21:00)
[2019-09-26] MEDS: traMADol HCl 50 MG TAB PO PRN (21:16)
[2019-09-26] MEDS: Losartan 25 MG TAB PO SCH (21:27)
[2019-09-27] MEDS: Acetaminophen 325 MG TAB PO SCH ×3 (00:28→11:30)
[2019-09-27 05:41] LABS: ALT (SGPT) 12 U/L (8-55); AST (SGOT) 16 U/L (5-34); Albumin 2.5 g/dL (3.4-4.8); Alkaline Phosphatase 122 U/L (40-110); Anion Gap 13 mmol/L (10-20); BUN (Urea Nitrogen) 27 mg/dL (8.4-25.7); Bilirubin, Total 0.4 mg/dL (0.2-1.2); Calc. Creatinine Clearance 49 mL/min (70-130); Calcium 8.2 mg/dL (7.8-10.44); Carbon Dioxide 24 mmol/L (23-31); Chloride 110 mmol/L (98-107); Estimated GFR-MDRD 57; Globulin 2.7 g/dL (2.4-3.5); Potassium 4.3 mmol/L (3.5-5.1); Protein, Total 5.2 g/dL (5.8-8.1); Sodium 143 mmol/L (136-145)
[2019-09-27 05:44] LABS: Glucose 52 mg/dL (83-110)
--- NOTE | 2019-09-27 08:17 | PDOC.FM ---
- Subjective Subjective: pt watching the news and enjoying breakfast ros unobtainable - Objective Vital Signs & Weight: Vital Signs (12 hours) Pulse Resp Pulse Ox 09/27/19 07:18 88 16 94 L 09/26/19 23:18 93 L 09/26/19 20:16 94 L Weight Admit Weight 79.243 kg Weight 79.243 kg I&O: 09/26/19 09/27/19 09/28/19 06:59 06:59 06:59 Intake Total 970 1080 Balance 970 1080 Result Diagrams: 09/25/19 05:44 09/27/19 05:05 Phys Exam - Physical Examination Constitutional: NAD HEENT: moist MMs, sclera anicteric Neck: supple, full ROM Respiratory: no wheezing, clear to auscultation bilateral Cardiovascular: RRR, no significant murmur Gastrointestinal: soft, non-tender Musculoskeletal: pulses present Neurological: moves all 4 limbs Psychiatric: normal affect Skin: normal turgor Deviation from normal: wound dressing in place Dx/Plan (1) Cellulitis and abscess of buttock Code(s): L02.31 - CUTANEOUS ABSCESS OF BUTTOCK; L03.317 - CELLULITIS OF BUTTOCK Status: Acute (2) GEORGES (acute kidney injury) Code(s): N17.9 - ACUTE KIDNEY FAILURE, UNSPECIFIED Status: Acute (3) Sepsis Code(s): A41.9 - SEPSIS, UNSPECIFIED ORGANISM Status: Acute (4) BPH (benign prostatic hyperplasia) Code(s): N40.0 - BENIGN PROSTATIC HYPERPLASIA WITHOUT LOWER URINRY TRACT SYMP Status: Chronic (5) DM2 (diabetes mellitus, type 2) Status: Chronic (6) Dementia Code(s): F03.90 - UNSPECIFIED DEMENTIA WITHOUT BEHAVIORAL DISTURBANCE Status: Chronic Qualifiers: Dementia type: Alzheimer's disease (7) GERD (gastroesophageal reflux disease) Code(s): K21.9 - GASTRO-ESOPHAGEAL REFLUX DISEASE WITHOUT ESOPHAGITIS Status: Chronic (8) HLD (hyperlipidemia) Code(s): E78.5 - HYPERLIPIDEMIA, UNSPECIFIED Status: Chronic (9) HTN (hypertension) Code(s): I10 - ESSENTIAL (PRIMARY) HYPERTENSION Status: Chronic (10) History of CVA (cerebrovascular accident) Code(s): Z86.73 - PRSNL HX OF TIA (TIA), AND CEREB INFRC W/O RESID DEFICITS Status: Chronic - Plan Plan: Patient is an 89M with PMHx of alzheimer's dementia, L-eye blindness, GERD, DM2 , BPH, HLD, HTN, prior CVA with L-sided deficits admitted for sepsis 2/2 cellulitis, and CAP Cellulitis with R gluteal abscess. A- Continued improvement. Pt is POD 3 from debridement. wound culture reads ellis sensitive e.coli. I suspect the cellulitis is a staph species however as it only improved after adding vanc P- continue Bactrim -pt has wound vac in place and is medically ready for DC -CM to confirm NH can accomodate wound vac -f/u outpt with surg in 2-3 weeks GEORGES -resolved Sepsis 2/2 CAP -resolved. Pt completed 5 day course ABX PVCs, 2 episodes of Weckenbach - 2 episodes on 09/20, none since then. DM2 -[facility] accuchecks -ISS, home 70/30, will adjust home regimen as needed HTN -restart home meds as tolerated HLD -continue home meds GERD -continue home meds Hx of CVA with L-sided deficits and dysphagia -continue home meds -speech consulted, appreciate recs -financial reporting director consulted, appreciate recs BPH -continue home meds DVT ppx: clopidogrel (home med) Code: DNR confirmed with Daughter, Mark Addendum - Attending - Attending Attestation Date/Time: 09/27/19 [id number] I personally evaluated the patient and discussed the management with Dr. Pace. I agree with the History, Examination, Assessment and Plan documented above with any addition or exceptions noted below. Monitor sugars, likely dc today.
[2019-09-27 08:35] VITALS: TEMP 98
[2019-09-27] MEDS ORDERED: HumuLIN 70/30 (300 UNITS/3 ML VIAL) SC SCH (09:00)
[2019-09-27] MEDS: Ferrous Sulfate 325 MG TAB PO SCH (09:40)
[2019-09-27] MEDS: Dutasteride 0.5 MG CAP PO SCH (09:42)
[2019-09-27] MEDS: Amlodipine 10 MG TAB PO SCH (09:42)
[2019-09-27] MEDS: Ascorbic Acid 500 mg Chewable Tablet PO SCH (09:42)
[2019-09-27] MEDS: Escitalopram Oxalate 10 mg Tablet PO SCH (09:42)
[2019-09-27] MEDS: Tamsulosin HCl 0.4 MG CAP PO SCH (09:42)
[2019-09-27] MEDS: guaiFENesin ER 600 MG TAB PO SCH (09:42)
[2019-09-27] MEDS: Sulfameth/Trimethoprim DS 800-160mg TAB PO SCH (09:43)
[2019-09-27] MEDS: Clopidogrel Bisulfate 75 MG TAB PO SCH (09:43)
[2019-09-27] MEDS: traMADol HCl 50 MG TAB PO PRN ×2 (09:43→14:06)
[2019-09-27] MEDS: Polyethylene Glycol 3350 17 GM Packet PO SCH (09:44)
[2019-09-27] MEDS: Metoprolol Tartrate 50 MG TAB PO SCH (09:44)
[2019-09-27] MEDS: Nystatin Cream 15 GM TUBE TOP SCH (09:45)
--- NOTE | 2019-09-27 13:10 | PQF ---
CLINICAL DOCUMENTATION IMPROVEMENT CLARIFICATION FORM: ICD-10 Updated PLEASE DO AN ADDENDUM TO THE PROGRESS NOTE WITH ANY DOCUMENTATION UPDATES OR ADDITIONS AND CARRY THROUGH TO DC SUMMARY. THANK YOU. DATE: 09/27/2019 ATTN: Dr. Schwartz Please exercise your independent, professional judgment in responding to the clarification form. Clinical indicators are provided on the bottom of this form for your review Please check appropriate box(s): [ x ] Excisional Debridement: [ x] Excised [ ] Cut away [ ] Other: Depth / layer: (deepest layer of debridement): [ ] Skin [ ] SubQ Tissue [ x ] Fascia [ ] Muscle [ ] Tendon [ ] Bone Appearance of wound: (e.g., down to fresh bleeding tissue, etc.)__ Margins: (please specify): 10___ / x _5____ x _3 cm____ Instruments used: [ x ] Scissors [ x ] Scalpel [ ] Curette [ ] Soft tissue clipper [ ] Other: _ [ ] Non-excisional Debridement: (Removal by flushing, brushing, chemical, or washing) Depth / layer: (deepest layer of debridement): [ ] Skin [ ] Subcutaneous [ ] Fascia [ ] Muscle [ ] Tendon [ ] Bone [ ] Incision and Drainage only (No Debridement): Depth:[ ] Skin [ ] Subcutaneous [ ] Fascia [ ] Muscle [ ] Tendon [ ] Bone [ ] Escharectomy [ ] Other procedure diagnosis [ ] Unable to determine For continuity of documentation, please document condition throughout progress notes and discharge summary. Thank You. CLINICAL INDICATORS - SIGNS / SYMPTOMS / LABS / RESULTS AND LOCATION IN EMR 09/23 Operative Note: Incision and drainage with extensive radical debridement of all nonviable tissue in the right groin crease Description of Operation: (Line 9) Underneath was some foul-smelling , grayish necrotic tissue and purulent material. This was sharply debrided back to viable tissue. All undermining was debrided as well. RISKS: H&P 09/19: 89 m with PMHx of alzheimer's dementia, DM 2, HTN, prior CVA with L-sided deficits admitted for sepsis 2/2 pneumonia. Pt has lesion on right buttock. 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 TREATMENT: 09/23 Operative Note: Incision and drainage with extensive radical debridement of all nonviable tissue in the right groin crease 09/23: Wound Care Eval to place wound VAC Thank you, Telma (This form is maintained as a part of the permanent medical record) 2015 [employer] All Rights Reserved Telma Perez RN, BSN [email or web address] Office: [phone] [facility]
--- NOTE | 2019-09-27 13:24 | DIS ---
DATE OF ADMISSION: 09/20/2019 DATE OF DISCHARGE: 09/27/2019 ADMITTING ATTENDING: Damian Martins MD DISCHARGE ATTENDING: Asher Castano MD RESIDENT: Kameron Pace MD I personally saw the patient for a total of 7 days. CONSULTS: 1. General Surgery, Dr. Ramesh Schwartz. 2. Speech Therapy, dietitian, Case Management, Wound Care. PROCEDURES: 1. On 09/19/2019, chest x-ray; impression, left lower lobe atelectasis versus early infiltrate. 2. On 09/19/2019, brain CT; impression, no acute intracranial abnormalities, stable exam. 3. On 09/22/2019, chest x-ray; impression, no acute pulmonary findings. 4. On 09/24/2019, incision and drainage with extensive radical debridement of nonviable tissue in the right groin crease. DISCHARGE MEDICATIONS: 1. Tamsulosin 0.4 mg p.o. daily. 2. Quetiapine 25 mg p.o. q.i.d. 3. Pantoprazole 40 mg p.o. daily. 4. Metoprolol 50 mg p.o. b.i.d. 5. Lexapro 10 mg p.o. daily. 6. Clonidine one tablet p.o. q.i.d. resumed at home. 7. Tylenol. 8. Amlodipine 10 mg p.o. daily. 9. Vitamin C. 10. Dutasteride 0.5 mg p.o. daily. 11. Ferrous sulfate 325 mg p.o. b.i.d. with meals. 12. MiraLAX. 13. Senokot. 14. Plavix 75 mg p.o. daily. 15. Bactrim Double Strength tablets one tablet p.o. b.i.d. x7 days. 16. Zofran 4 mg p.r.n. 17. Cyclobenzaprine p.r.n. 18. Irbesartan 150 mg p.o. at bedtime. 19. Atorvastatin 40 mg p.o. daily. 20. Tramadol 50 mg p.o. q.8 hours p.r.n., resumed at home. 21. p.o. p.r.n. 22. . DISCONTINUED MEDICATIONS: Humulin 70/30, 17 units subcutaneous b.i.d. PRIMARY DIAGNOSIS: Sepsis secondary to cellulitis with right gluteal abscess. SECONDARY DIAGNOSES: Community-acquired pneumonia, acute kidney injury, premature ventricular contractions, type 2 diabetes, hypertension, hyperlipidemia, gastroesophageal reflux disease, history of cerebrovascular accident, and BPH. HISTORY OF PRESENT ILLNESS AND HOSPITAL COURSE: This is an 89-year-old male who [facility] and was found to be septic, thought to be secondary to a pneumonia with a questionable chest x-ray read. The patient was admitted and started on antibiotics for this, including coverage for aspiration pneumonia. These antibiotics were eventually tailored to the Rocephin and azithromycin and repeat chest x-ray showed no infiltrate. The patient also notably had a right boil, which had ruptured on his right gluteal crease. This boil was on presentation with only mild erythema and tenderness to palpation. However, shortly after admission, it was apparent that erythema was spreading from the apparently ruptured abscess and so, the patient was started on vancomycin, which quickly improved the cellulitis. Wound Care was consulted, who recommended surgery consult for evaluation of additional I and D surgery was consulted, which recommended incision and drainage in the operating room as the patient had low pain tolerance. This incision and drainage were completed and the patient was eventually switched from vancomycin to Bactrim. The patient continued to show improvement and was no longer meeting SIRS criteria for several days. Case Management was consulted as surgery recommended a wound VAC in the [facility] and follow up with them in 2 to 3 weeks. Once wound VAC was arranged at [facility], the patient was discharged in good condition with another week of p.o. antibiotics, wound VAC, and followup plans with PCP and with Surgery. DISPOSITION: Stable. DISCHARGE INSTRUCTIONS: 1. Location[facility] jail. 2. Activity: Fall risk. 3. Followup: Follow up with primary care provider, Felicitas Moise in 3 days and with Ramesh Schwartz in 2 to 3 weeks. 4. Diet: Regular diet with speech therapy recommendations for consistency as the patient is an aspiration risk. Job ID: [id number]
--- NOTE | 2019-09-27 13:49 | PRG ---
DATE OF SERVICE: 09/27/2019 Mr. Beard remains in the hospital following radical debridement of necrotizing infection of the right inguinal crease. His wound was examined today at bedside with the Wound Care Team. He tells me that he had pulled off his wound VAC when he became agitated overnight. He has therefore had no suction on the wound for almost a day. The wound has little healthy-appearing tissue. It is still undermined in a few directions. There is no foul smell and no obvious gangrenous tissue. There is nothing that looks like it would require excisional debridement at this time. I recommended replacement of the wound VAC. The patient remained stable for discharge. I will see him back in a couple of weeks to check the progress of this wound, but I suspect that with appropriate wound care that this will heal with time. Job ID: [id number]
[2019-09-27 14:09] VITALS: BP 134/71
== END 2019-09-27 15:20 | DRG 853 ==
LOC: ERS 20:19 → 2NO 09-20 00:15 → T4-A 09-22 20:47
PROVIDERS: ADMIT Family Medicine; ATTEND Family Medicine
PROC: 0JB90ZZ Excision of Buttock Subcutaneous Tissue and Fascia, Open Approach (ICD-10-PCS; principal; 2019-09-24)
DX: A41.9 Sepsis, unspecified organism (principal); J69.0 Pneumonitis due to inhalation of food and vomit; I69.354 Hemiplegia and hemiparesis following cerebral infarction affecting left non-dominant side; L03.317 Cellulitis of buttock; Z66 Do not resuscitate; E11.9 Type 2 diabetes mellitus without complications; E78.5 Hyperlipidemia, unspecified; I10 Essential (primary) hypertension; K21.9 Gastro-esophageal reflux disease without esophagitis; G30.9 Alzheimer's disease, unspecified; F02.80 Dementia in other diseases classified elsewhere, unspecified severity, without behavioral disturbance, psychotic disturbance, mood disturbance, and anxiety; N18.9 Chronic kidney disease, unspecified; N40.0 Benign prostatic hyperplasia without lower urinary tract symptoms; I69.391 Dysphagia following cerebral infarction; Z90.49 Acquired absence of other specified parts of digestive tract
CPT/HCPCS: 36415; 36416; 51701; 70450; 71045; 80048; 80053; 80202; 81003; 81015; 82570; 83605; 83735; 83930; 83935; 84145; 84300; 84484; 85025; 86140; 87040; 87070; 87077; 87086; 87186; 87205; 87804; 93005; 94640; 96361; 96365; 96366; 96367; 96375; J0456; J0692; J0696; J1100; J1650; J1815; J1885; J2001; J2270; J2405; J2704; J2920; J3010; J3370; J3490; J7050; J7620; S0020